=== PATIENT | male | born 1960 | race Caucasian/White ===

== ENCOUNTER 2024-03-11 08:50 | Observation (INO) ==
--- NOTE | 2024-02-04 11:25 | PAT Medication Instructions ---
Medication Instructions Date of Service February 04, 2024 Home Medications Medication Instructions Recorded sildenafil 50 mg tablet (Viagra) 50 mg PO DAILY PRN sexual activity 03/13/22 #10 tabs naloxone 4 mg/actuation nasal 4 mg intranasal Q2M PRN opioid 02/24/23 spray (Narcan) overdose #2 ea gabapentin 300 mg capsule 300 mg PO BID #180 caps 04/13/23 losartan 50 mg tablet 50 mg PO QAM #90 tabs 05/13/23 methocarbamol 500 mg tablet 500 mg PO BID #60 tabs 07/28/23 acetaminophen 500 mg capsule 500 mg PO Q6H PRN sildenafil 50 mg tablet (Viagra) 50 mg PO DAILY PRN acyclovir 400 mg tablet 400 mg PO BID allopurinol 300 mg tablet 300 mg PO QAM methylphenidate HCl 10 mg tablet 10 mg PO QID PRN naloxone 4 mg/actuation nasal spray (Narcan) 4 mg intranasal Q2M PRN gabapentin 300 mg capsule 300 mg PO BID losartan 50 mg tablet 50 mg PO QAM clonazepam 0.5 mg tablet (Klonopin) 0.5 mg PO HS PRN ondansetron HCl 8 mg tablet 8 mg PO Q8H PRN prochlorperazine maleate 10 mg tablet 10 mg PO Q6H PRN methocarbamol 500 mg tablet 500 mg PO BID cyanocobalamin (vitamin B-12) 1 tab PO QAM omeprazole magnesium 20 mg tablet,delayed release (Prilosec OTC) 20 mg PO QAM sertraline 100 mg tablet (Zoloft) 200 mg PO QAM Continue as directed naloxone 4 mg/actuation nasal spray (Narcan) 4 mg intranasal Q2M PRN(if needed) DO NOT take the morning of surgery sildenafil 50 mg tablet (Viagra) 50 mg PO DAILY PRN methylphenidate HCl 10 mg tablet 10 mg PO QID PRN losartan 50 mg tablet 50 mg PO QAM cyanocobalamin (vitamin B-12) 1 tab PO QAM Take morning of surgery With a small sip of water, OTHERWISE NOTHING TO EAT OR DRINK AFTER MIDNIGHT: acetaminophen 500 mg capsule 500 mg PO Q6H PRN(if needed) acyclovir 400 mg tablet 400 mg PO BID allopurinol 300 mg tablet 300 mg PO QAM gabapentin 300 mg capsule 300 mg PO BID ondansetron HCl 8 mg tablet 8 mg PO Q8H PRN(if needed) prochlorperazine maleate 10 mg tablet 10 mg PO Q6H PRN(if needed) methocarbamol 500 mg tablet 500 mg PO BID omeprazole magnesium 20 mg tablet,delayed release (Prilosec OTC) 20 mg PO QAM sertraline 100 mg tablet (Zoloft) 200 mg PO QAM Take evening before surgery acetaminophen 500 mg capsule 500 mg PO Q6H PRN(if needed) acyclovir 400 mg tablet 400 mg PO BID methylphenidate HCl 10 mg tablet 10 mg PO QID PRN(if needed) gabapentin 300 mg capsule 300 mg PO BID clonazepam 0.5 mg tablet (Klonopin) 0.5 mg PO HS PRN(if needed) ondansetron HCl 8 mg tablet 8 mg PO Q8H PRN(if needed) prochlorperazine maleate 10 mg tablet 10 mg PO Q6H PRN(if needed) methocarbamol 500 mg tablet 500 mg PO BID Other Notes If you have any questions please call us at [phone] or [phone] or [phone] or [phone]
--- NOTE | 2024-02-17 12:07 | Anesthesiology Consultation ---
Date of Service February 17, 2024 Assessment & Plan (1) Encounter for pre-operative examination: - Infectious disease screening: Per assessment on 02/17/24: No known recent infectious disease contacts or current infectious disease symptoms. - Outpatient joint assessment: Pt currently scheduled for inpatient pathway. If surgeon requests review for outpatient joint pathway, patient is an acceptable candidate for outpatient joint program from anesthesia standpoint pending surgeon's office assessment that patient is motivated, has good support and completes Same Day Joint Program preop requirements. - Cardiology note/[facility] inpatient evaluation (06/06/23): "Pt seen in cardiology consultation due to new possible murmur and fevers with underlying neutropenia and B cell lymphoma getting chemo. I personally reviewed the echo images interpreted by my partner the other day; the valve leaflets are well seen.. no evidence of suspected endocarditis; there is some mild sclerosis of the AV and MV which in could be the murmur being osculated and in the setting of possible fevers this murmur could be more audible.. I do not think a PEMA is indicated.. Pt is stable from a cardiac perspective" Chart Review Chart Review: Acceptable Risk for Surgery and Patient seen in Pre Admission Testing Teaching & Discussion Pre-Anesthesia Teaching/Discussion Notes: Instructed NPO after midnight before surgery,except medications with 15 cc of water. Medication instructions provided according to the PAT guidelines. History Surgery Operation Date: 03/11/24 10:00 Proposed Procedures p Left Total Knee Arthroplasty - Ricki Pacheco DO Height/Weight Height: 5 ft 10 in Weight: 115.9 kg Allergies Allergy/AdvReac Type Severity Reaction Status Date / Time No Known Drug Allergies Allergy Verified 02/04/24 07:31 Medications Home Medications Medication Instructions Recorded Confirmed Last Taken acetaminophen 500 mg capsule 500 mg PO Q6H PRN Pain 01/23/21 02/04/24 09/19/22 sildenafil 50 mg tablet (Viagra) 50 mg PO DAILY PRN sexual activity 03/13/22 02/04/24 Unknown #10 tabs acyclovir 400 mg tablet 400 mg PO BID 02/24/23 02/04/24 Unknown allopurinol 300 mg tablet 300 mg PO QAM 02/24/23 02/04/24 Unknown naloxone 4 mg/actuation nasal 4 mg intranasal Q2M PRN opioid 02/24/23 02/04/24 Unknown spray (Narcan) overdose #2 ea gabapentin 300 mg capsule 300 mg PO BID #180 caps 04/13/23 02/04/24 Unknown losartan 50 mg tablet 50 mg PO QAM #90 tabs 05/13/23 02/04/24 Unknown clonazepam 0.5 mg tablet (Klonopin) 0.5 mg PO HS PRN sleep/anxiety 06/08/23 02/04/24 Unknown ondansetron HCl 8 mg tablet 8 mg PO Q8H PRN N/V 06/08/23 02/04/24 Unknown prochlorperazine maleate 10 mg 10 mg PO Q6H PRN N/V 06/08/23 02/04/24 Unknown tablet methocarbamol 500 mg tablet 500 mg PO BID #60 tabs 07/28/23 02/04/24 Unknown cyanocobalamin (vitamin B-12) 1 tab PO QAM 02/04/24 02/04/24 Unknown omeprazole magnesium 20 mg 20 mg PO QAM 02/04/24 02/04/24 Unknown tablet,delayed release (Prilosec OTC) sertraline 100 mg tablet (Zoloft) 200 mg PO QAM 02/04/24 02/04/24 Unknown Past Medical History Medical History ADHD Anxiety and depression Aortic stenosis Echo 05/2023: "Mild" aortic stenosis (AV MG full 8.3mmhg, AV MG 11.3, ROSA 1.7cm2) COPD with emphysema Per records, patient unaware GERD (gastroesophageal reflux disease) History of anemia 05/2023, during chemo History of COVID-19 06/2022 (home test): rhinorrhea, cough > resolved 06/2023- Paxlovid tx > symptoms resolved History of kidney stones Hx of colonic polyps Hyperlipidemia Hypertension Left renal mass Per records Lumbar pain Lymphoma Dx 11/2022, 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 Multiple pulmonary nodules Under surveillance PRATIBHA (obstructive sleep apnea) CPAP (compliant) Osteoarthritis of knees, bilateral Port-A-Cath in place Exercise / Class Metabolic Activity II 4-5 Yardwork/Stairs/Walk up hill Past Family History Family History Father Mesothelioma Other No family history of adverse response to anesthesia Past Surgical History Surgical History H/O insertion of central venous access port 11/2022 History of colonoscopy History of cystoscopy History of mandibular surgery benign cyst removed from jaw History of tonsillectomy and adenoidectomy [place] teeth extracted Past Anesthesia History No Hx of Anesthesia Complications and No Family Hx of Anesthesia Complications History of PONV No Hx of PONV and No Hx of Motion Sickness Social History Smoking Status: Former smoker Do You Dip or Chew Tobacco: No Smoking End Date: Quit 10+ years ago Hx Alcohol Use: No substance use type: marijuana (Occasional use ) Review of Systems Patient denies chest pain, shortness of breath, dyspnea on exertion, fever, chills, cough, wheezing, palpitations. Physical Exam Vital Signs BP 130/81 P 81 TEMP 98.3 SP02 96%RA RESP 18 Physical Full cervical extension range of motion. Full TMJ range of motion. TMD >3.5 finger breaths Mallampati Score III Dentition: lower partial Lungs: clear throughout to auscultation Cardiac: regular rate and rhythm, II/ systolic murmur Spine: normal Carotid arteries: negative bruit Extremities: no LE edema Lab Results Anesthesia Preop Results Results Anesthesia Widget: PT 10.6 Seconds (9.0-12.0) 02/17/24 PTT 30 Seconds (21-31) 02/17/24 INR 1.0 (0.9-1.1) 02/17/24 Blood Type O Positive 02/17/24 Antibody Screen NEGATIVE 02/17/24 Testing Laboratory Results 02/04/24 WBC 5.61 H/H 13.1/38.9 PLATELETS 223 SODIUM 141 POTASSIUM 4.0 CHLORIDE 105 CO2 25 BUN 15 CREATININE 0.8 GLUCOSE 136 Electrocardiogram Date: 06/03/23 ST at 101bpm. NS STA. No significant change compared to 06/02/23 per supply chain associate comparison. Chest X-Ray Date: 06/03/23 Findings: + NAD Echocardiogram Date: 06/04/23 LVEF 60-64%. LV wall motion normal. Mild LAE/NIELS. LAE suggests diastolic LV dysfunction. Mild MR/TR. Mild aortic stenosis (AV MG full 8.3mmhg, AV MG 11.3, ROSA 1.7cm2).
[~2024-03-11 08:50] MED LIST: ROPIVACAINE 0.5% 5 MG/ML 30 ML VIAL ONE
[2024-03-11] MEDS: LR 500ML BOLUS, THEN 15ML/HR IV SCH (09:26)
[2024-03-11] MEDS: FAMOTIDINE 20 MG TAB PO SCH (09:27)
[2024-03-11] MEDS: dexAMETHasone**PF** 10 MG/ML VIAL IV SCH (09:27)
[2024-03-11] MEDS: ACETAMINOPHEN 500 MG TAB PO SCH ×2 (09:27→15:52)
[2024-03-11] MEDS: LR 60ML/HR IV SCH (09:28)
[2024-03-11] MEDS: GABAPENTIN 600 MG DOSE PO SCH (09:28)
[2024-03-11] MEDS ORDERED: MIDAZOLAM HCL 1 MG/ML 2ML VIAL ONE (10:18)
[2024-03-11] MEDS ORDERED: fentaNYL citrate PF 100 MCG/2 ML VIAL ONE (10:18)
--- NOTE | 2024-03-11 10:18 | History & Physical Bridge Note ---
Date of Service March 11, 2024 History & Physical Bridge Note I have examined the patient, reviewed the History & Physical and in the interval since the performance of the History & Physical I have noted the following changes of clinical significance: no changes noted
[2024-03-11] MEDS ORDERED: HYDROmorphone INJ 1 MG/ML SYRINGE IV PRN (10:34)
[2024-03-11] MEDS ORDERED: ePHEDrine sulfate 50 MG/ML AMP IV PRN (10:34)
[2024-03-11] MEDS ORDERED: ATROPINE SULFATE 0.1 MG/ML 10ML SYR IV PRN (10:34)
[2024-03-11] MEDS ORDERED: ONDANSETRON INJ 2 MG/ML 2 ML VIAL IV PRN ×2 (10:34→15:06)
[2024-03-11] MEDS ORDERED: LIDOCAINE 2% 2 ML VIAL/AMP(20MG/ML) INFIL ONE (10:41)
[2024-03-11] MEDS ORDERED: PROPOFOL IV EMULSION 10 MG/ML 20 ML VIAL IV ONE ×3 (10:51→12:53)
[2024-03-11] MEDS: TRANEXAMIC ACID 1,000 MG **IV Pre-op IV SCH (11:03)
[2024-03-11] MEDS: ceFAZolin 2000MG 2,000 MG/15 ML SYR IV SCH ×2 (11:20→18:47)
[2024-03-11] MEDS ORDERED: PHENYLEPHRINE 100MCG/ML 10ML SYR IV ONE (11:43)
[2024-03-11] MEDS: ORTHO JOINT ANESTHETIC ONE (12:09)
--- NOTE | 2024-03-11 12:43 | Operative Report ---
PG Post Operative Report Pre & Post Diagnosis Operation Date: 03/11/24 11:00 Pre-Op Diagnosis: Left knee degenerative joint disease. Post-Op Diagnosis: Left knee degenerative joint disease. I identified the patient and participated in the time-out.: Yes Procedure Operation Date: 03/11/24 11:00 Actual Procedures p Left Total Knee Arthroplasty(Left) - Ricki Pacheco DO Surgeon Ricki Pacheco DO Diesel Dinkey Engineer Ricki Pavon PA-C Estimated Blood Loss 30 Findings Consistent with Post-Op Diagnosis Specimens Left femoral tibial bone Description of Procedure Implants used: I used a Meseret Persona total knee arthroplasty system with a size 10 standard PS femur, F tibia, 34 oval patella, and a size 14 CPS polyethylene bearing. All components were cemented in place with Biomet cement. Maverick arrived [facility] for the above procedure. He was seen in the preoperative holding area and the operative extremity was identified and signed. He was given a preoperative antibiotic, TXA, a spinal anesthetic and an adductor nerve block. He was taken back to the operating room and laid on the table in supine position. He was given basic sedation. The operative knee was then prepped and draped in sterile fashion. A timeout was done, and the patient and the operative extremity was properly identified. A midline incision was made directly over the patella. Dissection was taken down to the extensor mechanism. A medial parapatellar arthrotomy was used. The medial retinaculum was released and the fat pad was mostly excised. The knee was flexed and the ACL, PCL, and meniscus were removed. A drill was sent down the center of the femoral canal followed by an intramedullary lucio. Off that lucio a distal femoral cutting block was placed. 9 mm was resected off the distal femur at 5 of valgus. A posterior referencing AP sizing guide was then placed on the distal femur. The femur measured to be a size 10. 2 drill holes were placed in 3 of external rotation. A 4-in-1 cutting block was then impacted into place. Anterior, posterior, and chamfer cuts were then made. The proximal tibia was then exposed. An external tibial alignment guide was placed. A tibial cut guide was then anchored in place and the proximal tibia was then resected. The posterior aspect of the knee was then opened up and any additional meniscus fragments and osteophytes were removed. The tibia measured to be a size F. The tibial plate was then placed in the appropriate rotation and the tibia was drilled and punched. Trial components were then placed. I used a size 14 CPS polyethylene insert. The knee was brought through a full range of motion and felt to be stable. The peg holes for the femoral component were then drilled. The patella was then everted and 9 mm was resected off the posterior aspect of the patella. The patella measured to be a size 34 oval. 3 peg holes were then drilled. A trial patella was placed. The knee was once again brought through a full range of motion and felt to be stable. Trial components were then removed. The surrounding soft tissues were injected with 100 cc of an orthopedic pain control cocktail. All components were then cemented into place with Biomet cement. The final polyethylene insert was then snapped into place. Once cement was dry the tourniquet was deflated. Hemostasis was obtained. A dilute betadyne lavage was then done for 3 minutes. The joint was then irrigated with normal saline solution. The medial parapatellar arthrotomy was then closed with #1 Vicryl suture. The skin was closed with 2-0 Vicryl, 3-0V lock suture, and oseas. A soft compressive dressing was placed. He was then transferred to a hospital bed and taken to the postanesthesia care unit in stable condition. He tolerated the procedure well. Ricki Pavon PA-C, was present for the entire procedure. He was critical for patient positioning, prepping, draping, retraction exposure, wound closure and application of sterile dressing. I attest to the content of the Intraoperative Record and any orders documented therein. Any exceptions are noted below.
[2024-03-11] MEDS: ROPIV 0.5% 246mg, Ketorolac 30mg, EPINEPHrine 0.5mg in NSS INFIL SCH (12:44)
[2024-03-11] MEDS: TRANEXAMIC ACID 1,000 MG **IV Intra-op IV SCH (12:44)
--- OUTSIDE RECORDS SUMMARY | 2024-03-11 13:20 | External Medical Summary | Summary of Care ---
Author Name Unknown Organization [facility] Address [address] [place] [address] Phone [phone] Care Team Providers Care Outside Sales Manager Name Role Phone David Barrios MD Primary Care Provider + Reason for Visit * Reason Comments eRx-Medication Refill Encounter Details Date Type Department Care Team (Late st Contact Info) Description 03/09/2024 Refill General Internal Medicine [facility] [address] [place] [address] David Barrios MD [address] [place] [address] Allergies Active Allergy Reactions Criticality Noted Date Comments Kiwi Extract 05/08/2017 Kiwi fruit-rash documented as of this encounter (statuses as of 03/11/2024) Medications Medication Sig Dispensed Refills Start Date End Date Status Losartan Potassium 50 MG Oral Tablet (Cozaar) Take 1 Tablet by mouth in the morning. Active Ondansetron HCl 8 MG Oral Tablet (Zofran)Indicatio ns: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 30 Tablet 2 02/13/2023 Active Allopurinol 300 MG Oral Tablet (Zyloprim)Indicat ions: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),Lymphoma of kidney (HCC) Take 1 Tablet by mouth in the morning. 30 Tablet 5 04/17/2023 Active clonazePAM 0.5 MG Oral Tablet (KlonoPIN)Indicat ions:DONI (generalized anxiety disorder) Take 1 Tablet by mouth every night at bedtime. 30 Tablet 07/29/2023 Active Sertraline HCl 100 MG Oral Tablet (Zoloft)Indicatio ns:DONI (generalized anxiety disorder) Take 1.5 Tablets by mouth in the morning. 135 Tablet 1 07/29/2023 Active Loratadine 10 MG Oral Capsule (Claritin) Take 1 Capsule by mouth in the morning. Active Omeprazole 20 MG Oral Capsule Delayed Release (PriLOSEC)Indicat ions: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),Lymphoma of kidney (HCC) Take 1 Capsule by mouth in the morning. 90 Capsule 1 11/10/2023 Active Sildenafil Citrate 50 MG Oral TabletIndications :Erectile dysfunction, unspecified erectile dysfunction type Take 1 Tablet by mouth daily as needed for Erectile Dysfunction. 10 Tablet 12/07/2023 Active Cyanocobalamin 1000 MCG Oral Tablet (Cyanocobalamin) Take 1 Tablet by mouth in the morning. 12/11/2023 Active Vitamin B-12 1000 MCG Oral Tablet (Cyanocobalamin) Take 1 Tablet by mouth in the morning. Active Gabapentin 300 MG Oral Capsule (Neurontin) Take 1 Capsule by mouth in the morning and 1 Capsule before bedtime. 60 Capsule 5 01/18/2024 Active Acyclovir 400 MG Oral Tablet (Zovirax)Indicati ons: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),Lymphoma of kidney (HCC) TAKE ONE TABLET BY MOUTH TWICE DAILY (IN THE MORNING AND AT BEDTIME) 60 Tablet 5 03/09/2024 Active Methocarbamol 500 MG Oral Tablet (Robamol) TAKE ONE TABLET BY MOUTH TWICE DAILY 60 Tablet 2 03/11/2024 Active Methocarbamol 500 MG Oral Tablet (Robamol) TAKE ONE TABLET BY MOUTH TWICE DAILY 60 Tablet 2 12/16/2023 Discontinued documented as of this encounter (statuses as of 03/11/2024) Active Problems Problem Noted Date Diagnosed Date Prediabetes 12/10/2023 History of lymphoma 07/23/2023 Mild aortic stenosis 06/05/2023 Mild mitral regurgitation 06/03/2023 Hypertension goal BP (blood pressure) < 140/90 1 08/03/2022 Metastasis to spinal cord 02/16/2023 Follicular lymphoma 02/16/2023 Lymphoma of kidney 02/13/2023 Encounter for antineoplastic chemotherapy 2022 Mixed hyperlipidemia 05/09/2017 ADHD (attention deficit hype ractivity disorder), inattentive type 05/09/2017 documented as of this encounter (statuses as of 03/11/2024) Resolved Problems Problem Noted Date Diagnosed Date Resolved Date Pancytopenia with fever 06/03/202311/24 Newly recognized murmur 06/03/202305/27 documented as of this encounter (statuses as of 03/11/2024) Immunizations Name Administration Dates Next Due COVID-19, mRNA, LNP-s, PF, B ooster, 100mcg/0.5mg (Moderna) 02/24/2022,05/25/2021,09/24/2020, 0 21 Seasonal Influenza, PF, 6 M & above, IM , (FluLaval or Fluzone) 04/30/2022,04/28/2020,05/08/2017 TDAP (age 10 and older)(Boostrix) 03/21/2021 documented as of this encounter Social History Tobacco Use Types Packs/Day Years Used Date Smoking Tobacco: Former Cigarettes Smokeless Tobacco: Never Alcohol Use Standard Drinks/Week Comments Not Currently 0 (1 standard drink = 0.6 oz pur e alcohol) PHQ-2 Answer Date Recorded PHQ Adult Total Score 0 06/03/2023 Utilities Answer Date Recorded Do you have trouble paying y our heating, water, or electric bill? (Adult - for ages 18 years and over) Not on file 01/12/2024 Is your family able to pay t he heat, water, or electric bill? (Household - for ages 0-17 years) Not on file 01/12/2024 Does your family have access to good internet? (Household - for ages 0-17 years) Not on file 01/12/2024 Social Connections Answer Date Recorded How often do you feel lonely or isolated from those around you? (Adult - for ages 18 years and over) Not on file 01/12/2024 Sex and Gender Information Value Date Recorded Sex Assigned at Male 01/28/2023 8:37 AM EDT Gender Identity Male 01/28/2023 8:37 AM EDT Sexual Orientation Straight 01/28/2023 8: 37 AM EDT Job Start Date Occupation Industry Not on file Not on file Not on file documented as of this encounter Functional Status Functional Status Response Date of Assess ment Are you deaf or do you have serious difficulty h earing? No 06/03/2023 Are you blind or do you have serious difficulty seeing, even when wearing glasses? No 06/03/2023 Do you have serious difficul ty walking or climbing stairs? (5 years old or older) No 06/03/2023 Do you have difficulty dress ing or bathing? (5 years old or older) No 06/03/2023 Because of a physical, menta l, or emotional condition, do you have difficulty doing errands alone such as visiting a doctor s office or shopping? (15 years old or older) No 06/03/20 Cognitive Status Response Date of Assessm ent Because of a physical, menta l, or emotional condition, do you have serious difficulty concentrating, remembering, or making decisions? (5 years old or older) No 06/03/2023 documented as of this encounter Miscellaneous Notes * Telephone Encounter - David Barrios MD - 03/11/2024 8:34 AM EDTSigned Prescriptions: Disp Refills Methocarbamol 500 MG Oral Tablet (Robamol) 60 Tab*2 Sig: TAKE ONE TABLET BY MOUTH TWICE DAILY Authorizing Provider: DAVID BARRIOS * Telephone Encounter - Alejandra Machado [facility] - 03/11/2024 6:15 AM EDT Pending Prescriptions: Disp Refills Methocarbamol 500 MG Oral Tablet (Robamol) 60 Tab*2 Sig: TAKE ONE TABLET BY MOUTH TWICE DAILY * Telephone Encounter - Alejandra Machado RPh - 03/11/2024 6:15 AM EDT Refill pharmacists currently not authorized to approve refills for this class of medication per refill protocol. Please approve if appropriate. Thank you, Alejandra Machado, PharmD. Clinical Pharmacist Pharmacy Refill Call Center 03/11/2024, 6:15 AM documented in this encounter Plan of Treatment Upcoming Encounters Date Type Department Care Team (Late st Contact Info) Description 03/24/2024 9:00 AM EDT Nurse Only Hematology/Oncology Treatment, [address] [address] [facility], Chair6 Hem Onc [address] [place] [id number] 05/12/2024 7:45 AM EDT Appointment Radiology, [address] [place] [address] 05/17/2024 1:45 PM EDT Office Visit Hematology/Oncology Andrzej [place] [phone] Negro Manuel MD [address] [place] [address] 06/30/2024 10:20 AM EST Office Visit General Internal [place] [address] David Barrios MD [address] [facility] [place] [address] Scheduled Procedures Name Priority Associated Diagnoses Date/Ti me COLONOSCOPY FLEXIBLE PROXIMAL DIAGNOSTIC Recall History of colon polyps Health Maintenance Due Date Last Done Comments Pneumococcal Vaccine: Pediatrics (0 to 5 Years) and At-Risk Patients (6 to 64 Years) (1 of 2 - PCV) 1965 Zoster Vaccines (1 of 2) 1978 Cologuard 2004 Fecal Occult Blood Test 2004 Sigmoidoscopy 2004 Colonoscopy 02/10/2022 02/10/2019, 02/10/2019 Colorectal Cancer Screening 02/10/2022 COVID-19 Vaccine ( season) 2023 02/24/2022, 05/25/2021, 09/24/2020, Additional history exists Influenza Vaccine (FLU shot) (#1) 2024 04/30/2022, 04/24/2021, 04/28/2020, Additional history exists Depression Screening 06/03/2024 06/03/2023 HbA1c 12/08/2024 12/09/2023 GFR 02/03/2025 02/04/2024, 11/25, 12/09/2023, Additional history exists Albumin/Creatinine Ratio 12/08/2026 12/09/2023 Lipid Panel 12/08/2028 12/09/2023, 06/26, 07/03/2014 DTaP,Tdap,and Td Vaccines (2 - Td or Tdap) 03/21/2031 03/21/2021 HPV (Gardasil) Vaccine Aged Out No lo nger eligible based on patient's age to complete this topic Hepatitis B Vaccine Aged Out No longe r eligible based on patient's age to complete this topic MENINGOCOCCAL (MENACTRA/MENVEO) Aged Out No longer eligible based on patient's age to complete this topic documented as of this encounter Medical Devices Implanted Type Area Crane Rigger Device Identifier Shelf Expiration Date Model / Serial / Lot Port Implant W/8f Poly Cath - [id number] Implanted:Qty : 1 on 02/25/2023 by Mick Rivera, at [facility] Right: Chest CR BARD : PERIPHERAL VASCULAR [id number] 11/24/2023 [id number] / / [id number] documented as of this encounter Advance Directives * Full Code (Latest Code Status on File) Date Activated Date Inactivated Comments 06/03/2023 7:46 PM 06/05/2023 4:10 PM This order reflects the patients wishes and were consensually agreed upon. Question Answer Comments Discussion of Advance Directives occurred with: Patient Care Teams Outside Sales Manager Relationship Specialty Start Date End Date David Barrios MD [address] [facility] [place] [address] PCP - General Internal Medicine 06/19/23 documented as of this encounter
--- OUTSIDE RECORDS SUMMARY | 2024-03-11 13:20 | External Medical Summary | Summary of Care ---
Author Name Unknown Organization [facility] Address [address] [place] [facility] [address] Phone [phone] Care Team Providers Care Steel Erector Name Role Phone David Barrios MD Primary Care Provider + Reason for Visit * Reason Comments eRx-Medication Refill Encounter Details Date Type Department Care Team (Late st Contact Info) Description 03/09/2024 Refill Hematology/Oncology [facility] [address] [facility] [place] [phone] Ashlee Aldana [facility] [address] 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); Lymphoma of kidney (HCC) Allergies Active Allergy Reactions Criticality Noted Date Comments Kiwi Extract 05/08/2017 Kiwi fruit-rash documented as of this encounter (statuses as of 03/09/2024) Medications Medication Sig Dispensed Refills Start Date [...] by mouth in the morning. 12/11/2023 Active Methocarbamol 500 MG Oral Tablet (Robamol) TAKE ONE TABLET BY MOUTH TWICE DAILY 60 Tablet 2 12/16/2023 Active Vitamin B-12 1000 MCG Oral Tablet [...] AT BEDTIME) 60 Tablet 5 03/09/2024 Active Acyclovir 400 MG Oral Tablet (Zovirax)Indicati ons: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),Lymphoma of kidney (HCC) TAKE ONE TABLET BY MOUTH TWICE DAILY (IN THE MORNING AND AT BEDTIME) 60 Tablet 5 07/28/2023 4 Discontinued documented as of this encounter (statuses as of 03/09/2024) Active Problems Problem Noted Date Diagnosed Date [...] as of this encounter (statuses as of 03/09/2024) Resolved Problems Problem Noted Date Diagnosed Date Resolved Date Pancytopenia with fever 06/03/202311/24 Newly recognized murmur 06/03/202305/27 documented as of this encounter (statuses as of 03/09/2024) Immunizations Name Administration Dates Next Due COVID-19, [...] encounter Miscellaneous Notes * Telephone Encounter - Negro Manuel MD - 03/09/2024 12:12 PM EDT E-prescribed acyclovir He has persistent lymphocytopenia and would like to continue acyclovir at this time. * Telephone Encounter - Martha Ochoa LPN - 03/09/2024 11:57 AM EDTPending Prescriptions: Disp Refills Acyclovir 400 MG Oral Tablet [Pharmacy Med*60 Tab*5 Sig: TAKE ONE TABLET BY MOUTH TWICE DAILY (IN THE MORNING AND AT BEDTIME) * Telephone Encounter - Martha Ochoa LPN - 03/09/2024 11:53 AM EDT Refill request for Acyclovir 400 mg tabs pended below: Last Refill: 07/28/2023 Last seen: 02/10/2024 Per Refill request 07/25/2024: Patient completed R-[facility] 06/17/23, prophylactic acyclovir. Next Appt.: 05/17/2024 documented in this encounter Plan of Treatment Upcoming Encounters Date Type Department Care Team (Late st Contact Info) Description 03/24/2024 9:00 AM EDT Nurse Only Hematology/Oncology Treatment, [address] [place] [address] [facility], Chair6 Hem Onc [address] [place] [address] [place] [address] 05/12/2024 7:45 AM EDT Appointment Radiology, [address] [place] [address] 05/17/2024 1:45 PM EDT Office Visit Hematology/Oncology [facility] [place] [address] [place] [phone] Negro Manuel MD [address] [place] [address] 06/30/2024 10:20 AM EST Office Visit General Internal Medicine [facility]j [facility]rows [place] [address] [place] [address] David Barrios MD [address] [place] [address] Scheduled Procedures Name Priority Associated Diagnoses Date/Ti [...] this encounter Medical Devices Implanted Type Area Mortgage Protection Sales Device Identifier Shelf Expiration Date Model / Serial / Lot Port Implant W/8f Poly Cath - [id number] Implanted:Qty : 1 on 02/25/2023 by Mick Rivera, at OR [facility] Right: Chest CR BARD : PERIPHERAL VASCULAR [id number] 11/24/2023 [id number] / / [id number] documented as of this encounter Visit Diagnoses Diagnosis 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 Question Answer Comments Discussion of Advance Directives occurred with: Patient Care Teams Steel Erector Relationship Specialty Start Date End Date David Barrios MD [address] [place] [address] PCP - General Internal Medicine 06/19/23 documented as of this encounter
--- OUTSIDE RECORDS SUMMARY | 2024-03-11 13:20 | External Medical Summary | Summary of Care ---
Author Name Unknown Organization [facility] Address [address] [facility] [address] Phone [phone] Care Team Providers Care Supervisor Pile Driving Name Role Phone David Barrios MD Primary Care Provider + Reason for Visit * Reason Comments Procedure Port flush with labs . Encounter Details Date Type Department Care Team (Late st Contact Info) Description 02/10/2024 8:15 AM EDT Nurse Only Hematology/Oncology Treatment, [address] [place] [phone] [place], Chair 1 Hem Onc [facility] [address], [place] [phone] Procedure (Port flush with labs. ) Allergies Active Allergy Reactions Criticality Noted Date Comments Kiwi Extract 05/08/2017 Kiwi fruit-rash documented as of this encounter (statuses as of 03/02/2024) Medications Medication Sig Dispensed Refills Start Date End Date Status Losartan Potassium 50 MG Oral Tablet (Cozaar) Take 1 Tablet by mouth in the morning. Active Ondansetron HCl 8 MG Oral Tablet (Zofran)Indications: 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 30 Tablet 2 02/13/2023 Active Prochlorperazine Maleate 10 MG Oral Tablet (Compazine)Indicatio ns: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),Lymphoma of kidney (HCC) Take 1 Tablet by mouth every 6 hours as needed for Nausea. 30 Tablet 2 02/13/2023 Active Allopurinol 300 MG Oral Tablet (Zyloprim)Indication s: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),Lymphoma of kidney (HCC) Take 1 Tablet by mouth in the morning. 30 Tablet 5 04/17/2023 Active Acyclovir 400 MG Oral Tablet (Zovirax)Indications :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),Lymphoma of kidney (HCC) TAKE ONE TABLET BY MOUTH TWICE DAILY (IN THE MORNING AND AT BEDTIME) 60 Tablet 5 07/28/2023 Active clonazePAM 0.5 MG Oral Tablet (KlonoPIN)Indication s:DONI (generalized anxiety disorder) Take 1 Tablet by mouth every night at bedtime. 30 Tablet 07/29/2023 Active Sertraline HCl 100 MG Oral Tablet (Zoloft)Indications: DONI (generalized anxiety disorder) Take 1.5 Tablets by mouth in the morning. 135 Tablet 1 07/29/2023 Active Loratadine 10 MG Oral Capsule (Claritin) Take 1 Capsule by mouth in the morning. Active Omeprazole 20 MG Oral Capsule Delayed Release (PriLOSEC)Indication s: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),Lymphoma of kidney (HCC) Take 1 Capsule by mouth in the morning. 90 Capsule 1 11/10/2023 Active Sildenafil Citrate 50 MG Oral TabletIndications:Er ectile dysfunction, unspecified erectile dysfunction type Take 1 [...] before bedtime. 60 Capsule 5 01/18/2024 Active documented as of this encounter (statuses as of 03/02/2024) Active Problems Problem Noted Date Diagnosed Date [...] as of this encounter (statuses as of 03/02/2024) Resolved Problems Problem Noted Date Diagnosed Date Resolved Date Pancytopenia with fever 06/03/202311/24 Newly recognized murmur 06/03/202305/27 documented as of this encounter (statuses as of 03/02/2024) Immunizations Name Administration Dates Next Due COVID-19, [...] No 06/03/2023 documented as of this encounter Nursing Notes * Dominique Alcala RN - 02/10/2024 8:24 AM EDT Chair 7. Patient was seen by today. (see office notes) VAD (Venous Access Device) accessed with #19G 3/4" without difficulty.Labs drawn. VAD flushed with 10 ml NSS and Heparin 5 ml (100 units/ml). Shahid needle removed intact. Patient tolerated procedure well. Discharged in stable condition. documented in this encounter Plan of Treatment Upcoming Encounters Date Type Department Care Team (Late st Contact Info) Description 03/24/2024 9:00 AM EDT Nurse Only Hematology/Oncology Treatment, [facility] [address] [place] [address] [address] [facility], Chair6 Hem Onc [address] [place] [phone] 05/12/2024 7:45 AM EDT Appointment Radiology, [facility] [address] [place] [address] 05/17/2024 1:45 PM EDT [facility] [place] [address] [facility] [place] [phone] Negro Manuel MD 200 [facility] [place] [address] 06/30/2024 10:20 AM EST Office Visit General Internal Medicine [facility] [place] [address] [facility] [place] [address] David Barrios MD [address] [facility] [place] [address] Scheduled Procedures Name Priority Associated Diagnoses Date/Ti [...] this encounter Medical Devices Implanted Type Area Test Desk Supervisor Device Identifier Shelf Expiration Date Model / Serial / Lot Port Implant W/8f Poly Cath - [id number] Implanted:Qty : 1 on 02/25/2023 by Mick Rivera DO at OR [facility] Right: Chest CR BARD : PERIPHERAL VASCULAR [id number] 11/24/2023 [id number] / / [id number] documented as of this encounter Procedures Procedure Name Priority Date/Time Associated Diagnosis Comments TESTOSTERONE: TOTAL, FREE AND BIOAVAILABLE Routine 02/10/2024 8:10 AM EDT History of lymphoma Normocytic anemia GGTP Routine 02/10/2024 8:10 AM EDT History of lymphoma Normocytic anemia documented in this encounter Results * GGTP (02/10/2024 8:10 AM EDT) GGTP 37 <=60 U/L 02/10/2024 2:3 3 PM EDT LAB[facility]ATORY [facility] Blood Blood sample taken from central line / Unknown Venipuncture / Unknown 02/10/2024 8:10 AM EDT 02/10/2024 8:23 AM EDT Negro Manuel MD LAB BLOOD ORDERABLES LABORATORY [facility] [address] [place] [address] * TESTOSTERONE: TOTAL, FREE AND BIOAVAILABLE (02/10/2024 8:10 AM EDT) Albumin 4.2 3.8 - 5.0 g/dL 02/10/2024 3:17 PM EDT LABORATORY [facility] Sex Hormone Binding Globulin 52 12 - 91 nmol/L 02/10/2024 3:17 PM EDT LABORATORY [facility] Testosterone, Total 403.0 193.0 - 740.0 ng/dL 02/10/2024 3:17 PM EDT LABORATORY [facility] Free Testosterone, Calculation 61.2 35.0 - 130.0 pg/mL 02/10/2024 3:17 PM EDT LABORATORY [facility] Bioavailable Testosterone Calculation 140.2 79.0 - 335.0 ng/dL 02/10/2024 3:17 PM EDT LABORATORY [facility] Blood Blood sample taken from central line / Unknown Venipuncture / Unknown 02/10/2024 8:10 AM EDT 02/10/2024 8:23 AM EDT Negro Manuel MD LAB BLOOD ORDERABLES LABORATORY [facility] [address] [place], [place] [phone] documented in this encounter Visit Diagnoses Diagnosis History of lymphoma- Primary Personal history of other lymphatic and hematopoietic neoplasm Normocytic anemia Anemia, unspecified Encounter for central line care Fitting and adjustment of vascular catheter documented in this encounter Administered Medications Inactive Administered Medications - up to 3 most recent administrations Medication Order MAR Action Action Date Dose Rate Site hEParin 100 UNIT/ML Lock Flush inj 500 Units 500 Units (5 mL), IV Lock, PRN Other, IV Flush, Starting on Thu02/10/24 at 0810, Until Thu02/10/24 at 1226, For 24 hours, Do not flush if lock, PICC, or central line not in place; IV infusing or unable to flush. Given 02/10/2024 8:12 AM EDT 500 Units sodium chloride 0.9 % flush central line 10 mL 10 mL, IV Push, PRN Other, IV Flush, Starting on Thu02/10/24 at 0810, Until Thu02/10/24 at 1226, For 24 hours, Do not flush if lock, PICC, or central line not in place; IV infusing or unable to flush. Given 02/10/2024 8:12 AM EDT 10 mL documented in this encounter Advance Directives * Full Code (Latest Code Status on File) Date Activated Date Inactivated Comments 06/03/2023 7:46 PM 06/05/2023 4:10 PM This order reflects the patients wishes and were consensually agreed upon. Question Answer Comments Discussion of Advance Directives occurred with: Patient Care Teams Supervisor Pile Driving Relationship Specialty Start Date End Date David Barrios MD [address] [place] [address] PCP - General Internal Medicine 06/19/23 documented as of this encounter
[2024-03-11] MEDS: KETOROLAC 30 MG/ML VIAL IV PRN (13:27)
--- NOTE | 2024-03-11 14:22 | XRay Report ---
XR knee LT 1 or 2V routine CLINICAL HISTORY: Surgical Post Op TECHNIQUE: 2 views of the left knee were obtained. Comparison: Comparison is made to knee radiograph 10/07/2023 FINDINGS: Patient is status post total knee arthroplasty with expected postsurgical changes including soft tiss ue swelling and subcutaneous emphysema. No periarticular lucency or hardware fracture is seen. IMPRESSION: Expected postoperative appearance status post placement of total knee arthroplasty. ACT 112: Negative or not required by law. Electronically signed by: Clifton Steven M.D. 03/11/2024 2:21 PM
--- NOTE | 2024-03-11 14:29 | Anesthesiology Progress Note ---
Date of Service March 11, 2024 Anesthesia Post Procedure Vital Signs Vital Signs: Temp Pulse Pulse Resp BP Pulse Ox O2 Del Method 03/11/24 14:15 88 15 134/92 95 Nasal Cannula 03/11/24 14:00 83 22 124/77 95 Nasal Cannula 03/11/24 13:45 75 13 107/65 95 Nasal Cannula 03/11/24 13:30 36.5 C 74 22 106/68 94 Nasal Cannula 03/11/24 13:20 83 23 124/82 92 Room Air 03/11/24 13:10 79 22 110/77 98 Oxymask 03/11/24 13:02 36.5 C 80 15 113/60 98 Oxymask 03/11/24 09:18 36.6 C 81 20 175/98 H 96 Room Air O2 Flow Rate 03/11/24 14:15 2 03/11/24 14:00 2 03/11/24 13:45 2 03/11/24 13:30 2 03/11/24 13:20 03/11/24 13:10 3 03/11/24 13:02 6 03/11/24 09:18 Pain Intensity Left Knee: Pain Intensity: 2 Transfer of Care Handoff Completed per policy Notes Mental Status: alert / awake / arousable Patient Amnestic to Procedure: Yes Nausea / Vomiting: adequately controlled Pain: adequately controlled Airway Patency, RR, SpO2: stable & adequate BP & HR: stable & adequate Hydration State: stable & adequate Neuraxial Anesthesia: was administered and sensory block is resolving Anesthetic Complications: no major complications apparent
[2024-03-11] MEDS ORDERED: MAGNESIUM HYDROXIDE SUSP 30 ML UDC PO PRN (15:06)
[2024-03-11] MEDS ORDERED: NALOXONE HCL 0.4 MG/1 ML VIAL/CARP IV PRN (15:06)
[2024-03-11] MEDS ORDERED: bisacodyL 10 MG SUPP PR PRN (15:06)
[2024-03-11] MEDS ORDERED: clonazePAM 0.5 MG TAB PO PRN (15:06)
[2024-03-11] MEDS ORDERED: HYDROmorphone INJ 0.5 MG/0.5 ML SYR IV PRN (15:06)
[2024-03-11] MEDS ORDERED: PROCHLORPERAZINE MALEATE 10 MG TAB PO PRN (15:06)
[2024-03-11] MEDS ORDERED: METOCLOPRAMIDE HCL INJ 5 MG/ML 2 ML VIAL IV PRN (15:06)
[2024-03-11] MEDS: SODIUM CHLORIDE 0.9% 1,000 ML IV SCH (15:37)
[2024-03-11] MEDS: KETOROLAC 30 MG/ML VIAL IV SCH (15:52)
[2024-03-11] MEDS: oxyCODONE HCL IR 5 MG TAB (IMMEDIATE RELEASE) PO PRN (16:45)
[2024-03-11] MEDS: SENNA 8.6 MG TAB PO SCH (21:50)
[2024-03-11] MEDS: GABAPENTIN 300 MG CAP PO SCH (21:51)
[2024-03-11] MEDS: METHOCARBAMOL 500 MG TABLET PO SCH (21:51)
[2024-03-11] MEDS: DOCUSATE SODIUM 100 MG CAP PO SCH (22:03)
[2024-03-11] MEDS: ACYCLOVIR 400 MG TAB PO SCH (22:04)
[2024-03-11] MEDS: ASPIRIN 81 MG ECTAB PO SCH (22:04)
[2024-03-12 07:19] VITALS: O2SAT 96
--- NOTE | 2024-03-12 07:54 | Orthopedic Progress Note ---
Date of Service March 12, 2024 Assessment & Plan (1) Status post left knee replacement: Overall he is doing fairly well. He is not having much pain in the left knee. He will be seen by physical therapy today for ambulation and range of motion exercises. He can be discharged to home later today. He is on aspirin for DVT prophylaxis. The nursing staff can change his dressing after physical therapy. He will follow with orthopedics in 2 weeks. Racquel Temple was seen and examined at bedside this morning. Overall he is doing very well. He is not having much pain in the left knee. He has been up and ambulating to the bathroom. He has no complaints.. Review of Systems All systems reviewed & are unremarkable except as noted in HPI & below. Physical Exam On physical examination left knee, the dressing is clean and dry. His leg is out full extension. He has active dorsiflexion plantarflexion of his left ankle.. Results & Data Results & Data Laboratory Results . Diagnostic Findings Postoperative x-rays of the left knee show the prosthesis to be in anatomic alignment without any evidence of fracture complication, or loosening.. PG Care Time/CCT Total # of Minutes Spent Total Time Spent with Patient: Total time spent is greater than 50% in coordination of care (as documented) at patient's floor/unit and/or counseling patient: Coding Level of Care Code 70408 Post Operative Follow-Up Diagnoses Status post left knee replacement Z96.652
--- NOTE | 2024-03-12 07:55 | Discharge Summary ---
Date of Service March 12, 2024 Principal Diagnosis Same as "Discharge Diagnosis" noted below under Discharge Instructions. Discharge Exam On physical examination left knee, the dressing is clean and dry. His leg is out full extension. He has active dorsiflexion plantarflexion of his left ankle.. Discharge Data Procedures Performed Operation Date: 03/11/24 11:00 Actual Procedures p Left Total Knee Arthroplasty(Left) - Ricki Pacheco DO Ordered Studies 03/11/24 05:00 US - OR guided needle placemen Routine Hospital Course (1) Status post left knee replacement: On March 11, 2024 Maverick arrived at [facility] and underwent a left knee replacement without complication. He had a spinal anesthetic. Postoperatively he was started on aspirin for DVT prophylaxis and transferred to the general orthopedic floors. His hospital course was uneventful. On postop day #1, his vital signs were stable and his pain was well-controlled. He was able to participate well with physical therapy doing ambulation and range of motion exercises. He was then discharged to home. He will follow-up with orthopedics in 2 weeks. PG Care Time/CCT Total # of Minutes Spent Total Time Spent with Patient: Total time spent is greater than 50% in coordination of care (as documented) at patient's floor/unit and/or counseling patient: Discharge Plan Discharge Items Reason For Visit: Left Knee Degenerative Joint Disease Discharge Diagnosis: Left knee replacement Activity: Per Instructions section Non-emergency contact: Surgeon Call non-emergency contact if: your wound has increased redness and your wound has increased drainage Follow-up/Referrals: PCP,NO [Primary Care Provider] - Diet: Regular Addtl Attending Provider Instructions: Activity and Therapy Recommendations: * If you are using [facility] then therapy will be provided at your home until they feel you have accomplished all of your goals. * If you are using [facility] then Physical Therapy will be provided until they feel you are ready to start Outpatient Physical Therapy. * If you are not using home therapy then Outpatient Physical Therapy should start about 3-5 days from your day of surgery. Therapy will last about 6-10 weeks * It is important not to put a pillow under your knee when you are relaxing or sleeping. It is just as important to make sure you are getting your knee perfectly straight as it is to regain your knee bend. * You were shown a series of exercises in the hospital. Do these exercises three times each day including the exercises you were shown in physical therapy. * Get up and walk several times each day. For the first four weeks, try not to stand or walk for more than one hour at a time. If you do stand or walk for more than one hour, you will not hurt anything, but your leg will likely swell. * As you feel comfortable, you may change from the walker or crutches to a cane and then to independent walking. Medications: * Narcotic You will likely be sent home from the hospital with a prescription for the narcotic pain medication that worked best throughout your stay. * Cefadroxil -take the antibiotic twice a day for 10 days to help prevent infection. * Aspirin Most patients will be required to take Aspirin 81mg twice a day for 6 weeks after surgery. This is obtained [id number] and a prescription is not necessary. * Other medications may be prescribed for specific circumstances. If you have any questions, please call the office at . * Resume previous home medications unless otherwise instructed TEDs/Elastic Stockings: The white elastic stockings help limit swelling and prevent blood clots from forming in your legs.~ The more you wear them, the more they work. Wear them for six weeks. Dressing Care: The dressing can be changed after physical therapy on postop day #1. Daily dry dressing changes for a few days, especially if the incision is still draining some. If the incision is not draining then you may leave the oseas open to air. If there is a little bit of drainage or if the oseas are getting stuck on your clothing then cover the incision with a dry dressing. The oseas will be removed at your 2 week follow-up appointment. Showering: You may shower 5 days from the day of surgery as long as the incision is no longer draining. You may shower with the oseas exposed. Let soapy water run over the oseas and pat them dry. Do not scrub or soak the incision. Things To Watch For: * Drainage from the incision site that occurs more than one week after your surgery. * Increased redness at the incision site. * Fever above 102 degrees Fahrenheit. * Unusual chest pain or shortness of breath. * Call [facility] at with any of the above problems Follow-Up Visit: Follow-up with Dr. Pacheco's PA (Ricki Pavon) 2-3 weeks after your day of surgery. He will remove your oseas and answer any questions. If you have any additional questions or concerns, Dr Pacheco is usually in the office at the same time and will be available An appointment was probably scheduled when you signed-up for surgery in the office. If you have any questions call Office Instructions: More detailed instructions as well as Frequently Asked Questions were provided in a folder by our office when you signed-up for surgery. Please review these instructions when you get home. If you have any further questions or concerns, please feel free to call the office at [phone] Pending Studies at Discharge: No Stand-Alone Forms: [facility] Medications and DC Order Prescriptions: New oxycodone 5 mg Tablet 5 mg PO Q4H PRN (Reason: pain) Qty: 30 0RF cefadroxil 500 mg capsule 500 mg PO BID 10 Days Qty: 20 0RF aspirin 81 mg Tablet,Delayed Release (Dr/Ec) 81 mg PO BID 42 Days Qty: 0 0RF Continued gabapentin 300 mg capsule 300 mg PO BID Qty: 180 1RF losartan 50 mg tablet 50 mg PO QAM Qty: 90 3RF methocarbamol 500 mg tablet 500 mg PO BID Qty: 60 2RF sildenafil [Viagra] 50 mg tablet 50 mg PO DAILY PRN (Reason: sexual activity) Qty: 10 0RF Rx Instructions: administer 30 minutes to 4 hours before activity acetaminophen 500 mg capsule 500 mg PO Q6H PRN (Reason: Pain) clonazepam [Klonopin] 0.5 mg tablet 0.5 mg PO HS PRN (Reason: sleep/anxiety) Patient Comments: takes rarely ondansetron HCl 8 mg tablet 8 mg PO Q8H PRN (Reason: N/V) prochlorperazine maleate 10 mg tablet 10 mg PO Q6H PRN (Reason: N/V) allopurinol 300 mg tablet 300 mg PO QAM acyclovir 400 mg tablet 400 mg PO BID Vitamin B-12 Tablet,Chewable 1 tab PO QAM sertraline [Zoloft] 100 mg tablet 200 mg PO QAM omeprazole magnesium [Prilosec OTC] 20 mg tablet,delayed release (DR/EC) 20 mg PO QAM Admission Data Admit Date/Time: 03/11/24 13:02 Attending Provider: Ricki Pacheco Admit Provider: Ricki Pacheco Primary Care Provider: PCPMAURILIO
[2024-03-12] MEDS: SERTRALINE HCL 100 MG TABLET PO SCH (08:47)
[2024-03-12] MEDS: LOSARTAN POTASSIUM 50 MG TAB PO SCH (08:47)
[2024-03-12] MEDS: allopurinoL 300 MG TAB PO SCH (08:47)
[2024-03-12] MEDS: dexAMETHasone 4 MG TAB PO SCH (08:48)
[2024-03-12] MEDS: MULTIVITAMIN TAB PO SCH (08:50)
[2024-03-12 08:57] VITALS: BP 126/84; PULSE 85; RESP 17; TEMP 98.2
== END 2024-03-12 11:05 | disposition home or self-care (01) ==
LOC: ASU 08:50 → 3N 08:50

== ENCOUNTER 2024-05-23 10:27 | Observation (INO) ==
--- NOTE | 2024-05-13 11:47 | Anesthesiology Consultation ---
Date of Service May 13, 2024 Assessment & Plan (1) Encounter for pre-operative examination: Chart Review Chart Review: Acceptable Risk for Surgery and Patient NOT seen in Pre Admission Testing Pt currently scheduled as 23 hours observation. If surgeon decides to change patient to [facility], patient would be acceptable risk for TKA, pending patient is motivated, has good support and surgeon's office completes [facility] preop requirements. -Infectious Disease screening: Per PAT nursing assessment on 05/13/24. No known infectious disease contacts in past 10 days or current infectious disease s ymptoms. No recent travel outside the country. Left TKA 03/11/24= Done under [facility] at L3-4 History Surgery Operation Date: 05/23/24 07:15 Proposed Procedures p Right Total Knee Arthroplasty - Ricki Pacheco DO Height/Weight Height: 5 ft 9.5 in Weight: 112.037 kg Allergies Allergy/AdvReac Type Severity Reaction Status Date / Time No Known Drug Allergies Allergy Verified 05/13/24 11:08 Medications Home Medications Medication Instructions Recorded Confirmed Last Taken acetaminophen 500 mg capsule 500 mg PO Q6H PRN Pain 01/23/21 05/13/24 09/19/22 sildenafil 50 mg tablet (Viagra) 50 mg PO DAILY PRN sexual activity 03/13/22 05/13/24 Unknown #10 tabs acyclovir 400 mg tablet 400 mg PO BID 02/24/23 05/13/24 03/11/24 07:00 allopurinol 300 mg tablet 300 mg PO QAM 02/24/23 05/13/24 03/11/24 07:00 gabapentin 300 mg capsule 300 mg PO BID #180 caps 04/13/23 05/13/24 03/11/24 07:00 losartan 50 mg tablet 50 mg PO QAM #90 tabs 05/13/23 05/13/24 03/10/24 08:00 clonazepam 0.5 mg tablet (Klonopin) 0.5 mg PO HS PRN sleep/anxiety 06/08/23 05/13/24 Unknown ondansetron HCl 8 mg tablet 8 mg PO Q8H PRN N/V 06/08/23 05/13/24 Unknown prochlorperazine maleate 10 mg 10 mg PO Q6H PRN N/V 06/08/23 05/13/24 Unknown tablet methocarbamol 500 mg tablet 500 mg PO BID #60 tabs 07/28/23 05/13/24 03/11/24 07:00 cyanocobalamin (vitamin B-12) 1 tab PO QAM 02/04/24 05/13/24 Unknown omeprazole magnesium 20 mg 20 mg PO QAM 02/04/24 05/13/24 03/11/24 07:00 tablet,delayed release (Prilosec OTC) sertraline 100 mg tablet (Zoloft) 200 mg PO QAM 02/04/24 05/13/24 03/11/24 07:00 Past Medical History Medical History ADHD Anxiety and depression Aortic stenosis Echo 05/2023: "Mild" aortic stenosis (AV MG full 8.3mmhg, AV MG 11.3, ROSA 1.7cm2) COPD with emphysema Per records, patient unaware GERD (gastroesophageal reflux disease) History of anemia 05/2023, during chemo History of COVID-19 06/2022 (home test): rhinorrhea, cough > resolved 06/2023- Paxlovid tx > symptoms resolved History of kidney stones Hyperlipidemia Hypertension Left renal mass Per records Lumbar pain Lymphoma Dx 11/2022, 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 Multiple pulmonary nodules Under surveillance PRATIBHA (obstructive sleep apnea) CPAP (compliant) Osteoarthritis of knees, bilateral Port-A-Cath in place Past Family History Family History Father Mesothelioma Other No family history of adverse response to anesthesia Past Surgical History Surgical History H/O insertion of central venous access port 11/2022 History of colonoscopy History of cystoscopy History of mandibular surgery benign cyst removed from jaw History of tonsillectomy and adenoidectomy History of total left knee replacement Left TKA 03/11/24= Done under [facility] at L3-4 [place] teeth extracted Social History Smoking Status: Former smoker Do You Dip or Chew Tobacco: No Smoking End Date: over 10 years ago Hx Alcohol Use: Yes (social drinker, but not for last 2 years) Alcohol type: beer, wine and hard liquor alcohol intake frequency: a few times a week Hx Substance Use: No substance use type: does not use Lab Results Anesthesia Preop Results Results Anesthesia Widget: WBC 6.63 K/ul (4.8-10.8) 05/03/24 Hgb 12.7 g/dl (14.0-18.0) L 05/03/24 Hct 37.9 % (42.0-52.0) L 05/03/24 Plt 239 K/uL (130-400) 05/03/24 Na 138 mmol/L (136-145) 05/03/24 K 3.9 mmol/L (3.5-5.1) 05/03/24 Cl 104 mmol/L (98-107) 05/03/24 CO2 26 mmol/L (21-32) 05/03/24 BUN 15 mg/dl (6-23) 05/03/24 Creat 0.82 mg/dl (0.6-1.4) 05/03/24 Glucose Level 153 mg/dl (70-99(Fasting)) H 05/03/24 PT 10.6 Seconds (9.0-12.0) 05/03/24 PTT 31 Seconds (21-31) 05/03/24 INR 1.0 (0.9-1.1) 05/03/24 Blood Type O Positive 05/03/24 Antibody Screen NEGATIVE 05/03/24 Testing Laboratory Results Mild anemia- s/p Left TKA 03/11/24 Electrocardiogram Date: 06/03/23 ST at 101bpm. NS STA. No significant change compared to 06/02/23 per legal services professional comparison. Chest X-Ray Date: 06/03/23 Findings: + NAD Echocardiogram Date: 06/04/23 LVEF 60-64%. LV wall motion normal. Mild LAE/NIELS. LAE suggests diastolic LV dysfunction. Mild MR/TR. Mild aortic stenosis (AV MG full 8.3mmhg, AV MG 11.3, ROSA 1.7cm2).
[~2024-05-23 10:27] MED LIST changes: +BUPIVACAINE 0.25% PF 30 ML VIAL ONE; +BUPIVACAINE 0.5 % 5 MG/1 ML PF 10ML VIAL ONE; -ROPIVACAINE 0.5% 5 MG/ML 30 ML VIAL ONE
[2024-05-23] MEDS ORDERED: PHENYLEPHRINE 100MCG/ML 5ML SYR ONE (10:45)
[2024-05-23] MEDS ORDERED: ONDANSETRON INJ 2 MG/ML 2 ML VIAL ONE (10:45)
[2024-05-23] MEDS ORDERED: PROPOFOL IV EMULSION 10 MG/ML 20 ML VIAL IV ONE (10:45)
[2024-05-23] MEDS ORDERED: ePHEDrine sulfate 50 MG/5 ML SYR ONE (10:45)
[2024-05-23] MEDS ORDERED: MIDAZOLAM HCL 1 MG/ML 2ML VIAL ONE ×2 (10:46→12:34)
[2024-05-23] MEDS ORDERED: ePHEDrine sulfate 50 MG/ML AMP IV PRN (10:52)
[2024-05-23] MEDS ORDERED: ATROPINE SULFATE 0.1 MG/ML 10ML SYR IV PRN (10:52)
[2024-05-23] MEDS ORDERED: ONDANSETRON INJ 2 MG/ML 2 ML VIAL IV PRN ×2 (10:52→16:32)
[2024-05-23] MEDS ORDERED: fentaNYL citrate PF 100 MCG/2 ML VIAL IV PRN (10:52)
[2024-05-23] MEDS: LR 500ML BOLUS, THEN 15ML/HR IV SCH (10:54)
[2024-05-23] MEDS: LR 60ML/HR IV SCH (10:55)
--- NOTE | 2024-05-23 11:11 | History & Physical Bridge Note ---
Date of Service May 23, 2024 History & Physical Bridge Note I have examined the patient, reviewed the History & Physical and in the interval since the performance of the History & Physical I have noted the following changes of clinical significance: no changes noted
[2024-05-23] MEDS: ACETAMINOPHEN 500 MG TAB PO SCH ×2 (11:23→17:04)
[2024-05-23] MEDS: FAMOTIDINE 20 MG TAB PO SCH (11:24)
[2024-05-23] MEDS: dexAMETHasone**PF** 10 MG/ML VIAL IV SCH (11:24)
[2024-05-23] MEDS: TRANEXAMIC ACID 1,000 MG **IV Pre-op IV SCH (12:00)
[2024-05-23] MEDS: ceFAZolin 2000MG 2,000 MG/15 ML SYR IV SCH ×2 (12:12→20:55)
[2024-05-23] MEDS: ROPIV 0.5% 246mg, Ketorolac 30mg, EPINEPHrine 0.5mg in NSS INFIL SCH (12:47)
[2024-05-23] MEDS: ORTHO JOINT ANESTHETIC ONE (12:47)
[2024-05-23] MEDS: TRANEXAMIC ACID 1,000 MG **IV Intra-op IV SCH (13:15)
--- NOTE | 2024-05-23 13:20 | Operative Report ---
PG Post Operative Report Pre & Post Diagnosis Operation Date: 05/23/24 12:00 Pre-Op Diagnosis: Degenerative Joint Disease Knee Right Post-Op Diagnosis: Degenerative Joint Disease Knee Right I identified the patient and participated in the time-out.: Yes Procedure Operation Date: 05/23/24 12:00 Actual Procedures p Right Total Knee Arthroplasty(Right) - Ricki Pacheco DO Surgeon Ricki Pacheco DO Ham Facer Ricki Pavon PA-C Estimated Blood Loss 30 Findings Consistent with Post-Op Diagnosis Specimens Right femoral and tibial bone Description of Procedure Implants used: I used a [employer]ese[employer] Persona total knee arthroplasty system with a size 9 standard PS femur, F tibia, 34 oval patella, and a size 16 CPS polyethylene bearing. All components were cemented in place with Biomet cement. Maverick arrived [facility] for the above procedure. He was seen in the preoperative holding area and the operative extremity was identified and signed. He was given a preoperative antibiotic, TXA, a spinal anesthetic and an adductor nerve block. He was taken back to the operating room and laid on the table in supine position. He was given basic sedation. The operative knee was then prepped and draped in sterile fashion. A timeout was done, and the patient and the operative extremity was properly identified. A midline incision was made directly over the patella. Dissection was taken down to the extensor mechanism. A medial parapatellar arthrotomy was used. The medial retinaculum was released and the fat pad was mostly excised. The knee was flexed and the ACL, PCL, and meniscus were removed. A drill was sent down the center of the femoral canal followed by an intramedullary lucio. Off that lucio a distal femoral cutting block was placed. 9 mm was resected off the distal femur at 5 of valgus. A posterior referencing AP sizing guide was then placed on the distal femur. The femur measured to be a size 9. 2 drill holes were placed in 3 of external rotation. A 4-in-1 cutting block was then impacted into place. Anterior, posterior, and chamfer cuts were then made. The proximal tibia was then exposed. An external tibial alignment guide was placed. A tibial cut guide was then anchored in place and the proximal tibia was then resected. The posterior aspect of the knee was then o pened up and any additional meniscus fragments and osteophytes were removed. The tibia measured to be a size F. The tibial plate was then placed in the appropriate rotation and the tibia was drilled and punched. Trial components were then placed. I used a size 16 CPS polyethylene insert. The knee was brought through a full range of motion and felt to be stable. The peg holes for the femoral component were then drilled. The patella was then everted and 9 mm was resected off the posterior aspect of the patella. The patella measured to be a size 34 oval. 3 peg holes were then drilled. A trial patella was placed. The knee was once again brought through a full range of motion and felt to be stable. Trial components were then removed. The surrounding soft tissues were injected with 100 cc of an orthopedic pain control cocktail. All components were then cemented into place with Biomet cement. The final polyethylene insert was then snapped into place. Once cement was dry the tourniquet was deflated. Hemostasis was obtained. A dilute betadyne lavage was then done for 3 minutes. The joint was then irrigated with normal saline solution. The medial parapatellar arthrotomy was then closed with #1 Vicryl suture. The skin was closed with 2-0 Vicryl, 3-0V lock suture, and oseas. A soft compressive dressing was placed. He was then transferred to a hospital bed and taken to the postanesthesia care unit in stable condition. He tolerated the procedure well. Ricki Pavon PA-C, was present for the entire procedure. He was critical for patient positioning, prepping, draping, retraction exposure, wound closure and application of sterile dressing. I attest to the content of the Intraoperative Record and any orders documented therein. Any exceptions are noted below.
--- NOTE | 2024-05-23 13:45 | Anesthesiology Progress Note ---
Date of Service May 23, 2024 Anesthesia Post Procedure Vital Signs Vital Signs: Temp Pulse Resp BP Pulse Ox O2 Del Method 05/23/24 11:06 36.6 C 88 20 135/95 96 Room Air Pain Intensity Right Knee: Pain Intensity: 6 Transfer of Care Handoff Completed per policy Notes Mental Status: alert / awake / arousable and participated in evaluation Patient Amnestic to Procedure: Yes Nausea / Vomiting: adequately controlled Pain: adequately controlled Airway Patency, RR, SpO2: stable & adequate BP & HR: stable & adequate Hydration State: stable & adequate Neuraxial Anesthesia: was administered and sensory block is resolving Anesthetic Complications: no major complications apparent and Pt Satisfied with anesthetic care
--- OUTSIDE RECORDS SUMMARY | 2024-05-23 15:05 | External Medical Summary | Summary of Care ---
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) Procedures PET CT SKULL BASE TO MID-THIGH FDG Negro Manuel MD [address] [place] [address] Referral ID Status Reason Start Date Expiration Date V isits Requested Visits Authorized [id number] Pending Review 05/17/2024 999 999 Reason for Visit * Reason Comments Follow Up Encounter Details Date Type Department Care Team (Late st Contact Info) Description 05/17/2024 1:45 PM EDT Office Visit Hematology/Oncology [facility] [address] [place] [address] [phone] Negro Manuel MD [address] [facility] [place] [address] Lymphoma of kidney (HCC)*; 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 30 Tablet 5 04/17/2023 Active Additional Information Patient not taking.Reported on 05/17/2024 clonazePAM 0.5 MG Oral Tablet (KlonoPIN)Indicatio ns:DONI (generalized anxiety disorder) Take 1 Tablet by mouth every night at bedtime. 30 Tablet 07/29/2023 Active Sertraline HCl 100 MG Oral Tablet (Zoloft)Indications :DONI (generalized anxiety disorder) Take 1.5 Tablets by mouth in the morning. 135 Tablet 1 07/29/2023 Active Loratadine 10 MG Oral Capsule (Claritin) Take 1 Capsule by mouth in the morning. 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),Lymphoma of kidney (HCC) TAKE 1 CAPSULE BY MOUTH EVERY MORNING 90 Capsule 1 03/14/2024 Active Losartan Potassium 50 MG Oral Tablet (Cozaar) TAKE 1 TABLET BY MOUTH ONCE DAILY IN THE MORNING 90 Tablet 3 05/11/2024 Active documented as of this encounter (statuses as of 05/17/2024) Active Problems Problem Noted Date Diagnosed Date [...] as of this encounter (statuses as of 05/17/2024) Resolved Problems Problem Noted Date Diagnosed Date Resolved Date Pancytopenia with fever 06/03/202311/24 Newly recognized murmur 06/03/202305/27 documented as of this encounter (statuses as of 05/17/2024) Immunizations Name Administration Dates Next Due COVID-19, [...] on file documented as of this encounter Last Filed Vital Signs Vital Sign Reading Time Taken Comments Blood Pressure 150/79 05/17/2024 1:25 PM EDT Pulse 88 05/17/2024 1:25 PM EDT Temperature 36.2 C (97.2 F) 05/17/2024 1:25 PM ED T Respiratory Rate - - Oxygen Saturation 96% 05/17/2024 1:25 PM EDT Inhaled Oxygen Concentration - - Weight 114.5 kg (252 lb 6.4 oz) 05/17/2024 1:25 PM EDT Height - - Body Mass Index 38.66 12/07/2023 10:42 AM EDT documented in this encounter Functional Status Functional Status Response [...] (15 years old or older) No 06/03/20 23 Cognitive Status Response Date of Assessm ent Because of a physical, menta l, or emotional condition, do you have serious difficulty concentrating, remembering, or making decisions? (5 years old or older) No 06/03/2023 documented as of this encounter Progress Notes * Negro Manuel MD - 05/17/2024 1:45 PM EDT Hematology/Oncology Outpatient Clinic note [facility] [address] [facility] [place] [address] Name: Maverick Isabel Date: 04/15/2023 CHIEF COMPLAINT: Maverick Isabel is a 63 year old male here today for f/u visit today. HEMATOLOGY/ONCOLOGY DIAGNOSIS: Lymphoma involving multiple sites including the left kidney or perinephric region,, spleen, widespread bony involvement, enhancing epidural tumor most significantly in the T8 - T11 level DATE OF DIAGNOSIS: 12/26/22 CURRENT TREATMENT: Observation. COMPLETED TREATMENT: R-CHOP x 6 (03/05/2023--06/17/2023) -prophylactic Pegfilgrastim DIAGNOSTIC WORKUP: History of pulmonary nodule noted, he follows with medical transport specialist, had a periodic imaging study of the chest. CT chest done on 07/23/2022 at [facility]: -slightly hyperdense material along with the upper pole of the left kidney may invade the adjacent spleen, this could be subcapsular hemorrhage or possible mass lesion. -mild left hydronephrosis noted. -enlarging retrograde referred nodule as well as right axillary lymph node. -stable bilateral lung nodules He has a fall on ice in June 2022, CT scan of the abdomen pelvis done on 08/04/2022 showed perinephric hematoma adjustment of the left kidney upper pole, small left proximal ureter kidney stone with [id number] left hydronephrosis. He had a kidney sonogram on 11/24/2022 which showed no signal hydronephrosis but perinephric/subcapsular lesion nausea left upper pole of the kidney which are suspicious for neoplasm. MRI of the abdomen (12/09/2022: -Enhancing perirenal mass is seen with an enlarged medial component. Numerous enhancing soft tissuenodules are also seen. Findings are concerning for lymphoma with renal lymphoma. Of note, these findings have slowly enlarged from multiple prior exams MRI of the abdomen reviewed at [facility] as follows: 1. Second opinion evaluation MRI abdomen 12/09/2022. No priors at this institution for comparison. 2. Enhancing left perinephric mass, concerning for lymphoma given reported history. Recommend correlation with outside institution workup. 3. Ill-defined mesenteric root masslike enhancement, indeterminate. Findings could represent underlying mass versus desmoplastic reaction. 4. 10 mm pancreatic tail mass, with arterial enhancement which is atypical for lymphoma and may reflect hypervascular pancreatic primary or metastasis. Recommend comparison with priors. 5. Enlarged right cardiophrenic lymph node. Retroperitoneum, left, biopsy: (12/26/2022). - B-cell lymphoma with a follicular phenotype (see comment) Comment: The lymphocytes are CD10+/BCL-6+/BCL-2+ and show cleaved morphology with a diffuse growth pattern. They are relatively small to intermediate in size and are not diagnostic for large cell lymphoma; however, this is only a small biopsy of a larger lesion and may not be entirely human resources representative of the whole. While a diffuse follicular lymphoma is a little unusual in this location, I favor this is a follicular lymphoma grade 1/2. 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 Thus, we cannot classify this as a follicular lymphoma on this material. However there is nothing to suggest an aggressive lymphoma based on the histologic findings in this material. PET-CT scan (02/05/2023). Large left multifocal renal mass consistent with the biopsy proven lymphoma evidence of both thoracic and abdominal metastatic adenopathy, splenic involvement, and widespread osseous metastasis. Additional concern for possible spinal cord met at approximately T10. MRI of the thoracic spine (02/07/2023). 1. Enhancing epidural tumor most significant at the T8-T11 levels resulting in severe canal stenosis at the T9-T10 levels, likely on account of the patient's known lymphoma. There is no associated cord signal abnormality. Extraosseous tumor encroaches on several thoracic neural foramina, as described above. 2. Pathologic osseous enhancement at multiple thoracic levels, consistent with osseous involvement of known lymphoma. 3. Enhancing paravertebral tumor throughout the thoracic spine, consistent with lymphoma. MRI of the lumbar spine (02/09/2023). 1. Partially-imaged known thoracic epidural involvement of lymphoma. 2. Osseous lymphoma involvement, most notably at the L1 and S1 levels and in the partially-imaged iliac bones. 3. Multilevel degenerative changes - he was started on oral prednisone 100 mg per day on 02/09/2023 for 1 week. Bone marrow aspiration and biopsy (02/13/2023) - Foci of atypical para/geo trabecular dense lymphoid infiltrate most consistent with involvement by follicular lymphoma. ( 10%). Flow cytometry -> negative. OTHER IMPORTANT HISTORY: - back pain, disc problem, sciatica, he is on Neurontin for the last 2 years -hypertension He had COVID-19 infections in early July of 2022 and received Paxlovid, HISTORY OF PRESENT ILLNESS: He has come the clinic for the follow-up, accompanied by his in the office, now he completed 6cycles of R-CHOP chemotherapy on 06/15/2023. No new cardiac or pulmonary symptom no nausea no vomiting, no abdominal pain, no fever, some night sweats present, current weight around 252 lb. No increasing headache. No back pain, denies any increasing tingling and numbness of the extremities. Ambulates slowly because of the bilateral knee jointpain related underlying DJD. Past Medical History: Diagnosis Date Hypertension goal BP (blood pressure) < 140/90 06/03/2023 Motion sickness Past Surgical History: Procedure Laterality Date COLONOSCOPY, DIAGNOSTIC (RECTUM) 02/10/2019 adenomatous polyps, diverticulosis, repeat 3 yrs/COLONOSCOPY FLEXIBLE PROXIMAL DIAGNOSTIC performedby Linda White MD at ENDOSCOPY [facility] INSER TUNN ACC DEV;5 YRS/OLDER Right 02/25/2023 INSERT TUNNELED CENTRAL VENOUS ACCESS WITH SUBQ PORT performed by Mick Rivera DO at OR [facility] Social History Socioeconomic History Marital status: Spouse name: Not on file Number of children: 1 Years of education: Not on file Highest education level: Not on file Occupational History Occupation: non [employer] units Tobacco Use Smoking status: Former Types: Cigarettes Smokeless tobacco: Never Vaping Use Vaping status: Never Used Substance and Sexual Activity Alcohol use: Not Currently Drug use: Not Currently Sexual activity: Not on file Other Topics Concern Not on file Social History Narrative Not on file Social Determinants of Health Financial Resource Strain: Not on file Food Insecurity: Not on file Transportation Needs: Not on file Social Connections: Unknown (01/12/2024) Social Connections How often do you feel lonely or isolated from those around you? (Adult - for ages 18 years and over): Not on file Housing Stability: Low Risk (11/24/2023) [facility] Housing Stability Unstable Housing in the Last Year: Not on file Review of patient's allergies indicates: Allergen Reactions Kiwi Extract Kiwi fruit-rash Current Outpatient Medications Medication Sig Dispense Refill Ondansetron HCl 8 MG Oral Tablet (Zofran) Take 1 Tablet by mouth every 8 hours as needed for Nausea. 30 Tablet 2 Prochlorperazine Maleate 10 MG Oral Tablet (Compazine) Take 1 Tablet by mouth every 6 hours as needed for Nausea. 30 Tablet 2 Allopurinol 300 MG Oral Tablet (Zyloprim) Take 1 Tablet by mouth in the morning. 30 Tablet 5 clonazePAM 0.5 MG Oral Tablet (KlonoPIN) Take 1 Tablet by mouth every night at bedtime. 30 Tablet 0 Sertraline HCl 100 MG Oral Tablet (Zoloft) Take 1.5 Tablets by mouth in the morning. 135 Tablet 1 Loratadine 10 MG Oral Capsule (Claritin) Take 1 Capsule by mouth in the morning. Sildenafil Citrate 50 MG Oral Tablet Take 1 Tablet by mouth daily as needed for Erectile Dysfunction. 10 Tablet 0 Cyanocobalamin 1000 MCG Oral Tablet (Cyanocobalamin) Take 1 Tablet by mouth in the morning. Vitamin B-12 1000 MCG Oral Tablet (Cyanocobalamin) Take 1 Tablet by mouth in the morning. Gabapentin 300 MG Oral Capsule (Neurontin) Take 1 Capsule by mouth in the morning and 1 Capsule before bedtime. 60 Capsule 5 Acyclovir 400 MG Oral Tablet (Zovirax) TAKE ONE TABLET BY MOUTH TWICE DAILY (IN THE MORNING AND AT BEDTIME) 60 Tablet 5 Methocarbamol 500 MG Oral Tablet (Robamol) TAKE ONE TABLET BY MOUTH TWICE DAILY 60 Tablet 2 Omeprazole 20 MG Oral Capsule Delayed Release (PriLOSEC) TAKE 1 CAPSULE BY MOUTH EVERY MORNING 90 Capsule 1 Losartan Potassium 50 MG Oral Tablet (Cozaar) TAKE 1 TABLET BY MOUTH ONCE DAILY IN THE MORNING 90 Tablet 3 No current facility-administered medications for this visit. OBJECTIVE: BP 150/79 (BP Site: Left Arm, BP Position: Sitting, BP Cuff Size: Large) | Pulse 88 | Temp 36.2 C(97.2 F) (Tympanic) | Wt 114.5 kg (252 lb 6.4 oz) | SpO2 96% | BMI 38.66 kg/m | BSA 2.34 m PHYSICAL EXAM: General Appearance: No acute distress HEENT: Normal - No oral or pharyngeal masses, ulceration or thrush noted Lymph Nodes: Normal - No palpable lymph nodes in the neck, supraclavicular or axillary areas Lungs/Thorax: Normal - Clear to auscultation Heart: Normal - Regular rate and rhythm, normal S1, S2, no appreciable murmurs Extremities: +trace RLE edema Abdomen: Normal - Soft, nontender, bowel sounds present, no appreciable hepatosplenomegaly, no palpable masses Neurologic: Normal - Grossly intact LABS: Blood workup done on 08/20/2023: -WBC 5500, H&H of 13.8/40.6, Platelet count of 664925 -BUN/Creat: 15/0.9, Calcium 9.0, normal LFT other than slightly elevated alkaline phosphatase 147 -GGTP --> 148 which is on the higher side. -LDH -227. -IgG 640, IgA 194, IgM 18 ( 08/26/2023). Blood workup done on 10/05/2023: -WBC 6500, H&H of 14.4/41.3, Platelet count of 300154 -BUN/Creat: 18/1.1 -AST 76, ALT 119, alkaline phosphatase 207, bilirubin level 0.6 -LDH --> 284 - Uric acid --> 4.2 -phosphorus level --> 3.5 Blood workup done on 02/04/2024: - WBC 5600, H&H of 13/39, MCV 102.4, platelet count of 223,000. - BUN/Creat: 15/0.8, normal LFT other than alkaline phosphatase of 150 - LDH --> 209 - Uric acid --> 4.7 - Phosphorus level --> 3.5. Blood workup done on 05/16/2024: -BUN/Creat: 20/0.8, normal LFT other than alkaline phosphatase of 161, bilirubin level 0.4, calcium9.2 - WBC 7000, H&H of 13.2/40.4, platelet count of 231,000. CT scan of chest, abdomen pelvis on 04/27/2023: -few micro lung nodules. -previously enlarged the right cardiophrenic angle lymph node has gone down from 2.2 x 3.8 cm --> 1 x 2.1 cm -previously seen left paraspinous soft tissue density at the level of T7 and T10 have markedly decreased in size -previously noted subcapsular soft tissue infiltration of the left kidney has significantly decrease in the size. -previous fracture of left anterior 7th rib noted ( history of trauma about 2 years back ) -focal sclerosis of the left superior pubic ramus, no additional bone lesions noted PET-CT scan done on 08/19/2023 at [facility]: 1. Overall decreased left perinephric soft tissue compared to 03/28/2023, with mild residual stranding adjacent to the posterior aspect of the upper pole demonstrating mild FDG uptake and resolution ofpreviously seen soft tissue at the medial aspect of the left upper pole. 2. Fat stranding and soft tissue density at the small bowel mesenteric root and adjacent to the duodenal jejunal junction may be slightly decreased in size compared to MRI abdomen 03/28/2023 within thelimitations of comparison across modalities. These findings show no significant FDG uptake. 3. Unchanged right cardiophrenic lymph node without significant FDG uptake. 4. 1.6 cm superficial subcutaneous/cutaneous nodular density along the lower right back with moderate FDG uptake, indeterminate. Correlate with physical examination. 5. Mild soft tissue fullness in the pancreatic tail in the region of the previously described hypervascular lesion. This area is without significant FDG uptake. PET-CT scan done on 12/18/2023: Deashana 2. Decreased size and activity of the anterior mediastinal mass, now with background level uptake. Otherwise, resolution of the hypermetabolic paraspinous, left renal, splenic, and osseous lesions. PET-CT scan on 05/12/2024: Deauville score 1. Resolution of metabolically-active lymphoma. IMPRESSION/PLAN: Lymphoma involving multiple sites including the left kidney, spleen, widespread bony metastatic disease, enhancing epidural tumor most significantly in the T8 - T11 level Encounter for chemotherapy He completed 6 cycles of R-CHOP in late May 2023, he had a infectious complications following that, also had COVID infection in July of 2023. IgG level was around 640. Now he has done quite well in last 6 months, I reviewed with them regarding the last PET-CT scan done on 05/12/2024, overall no FDG avid disease noted anywhere else. Reviewed blood workup done recently, lymphocytopenia is persistent, he is on acyclovir prophylaxis,he would like to continue that. He gets a port flush every 6 weekly, no new port problem. I am planning for follow-up PET-CT scan about 6 months and then will see him back in the clinic. Will get CBCD, comprehensive metabolic panel, LDH, Uric acid in about 6 months unless he has any new problem then we can get blood workup before that. Dr. Negro Manuel Hem/Onc (This note was completed using the dictation program Fluency Direct. As such, there may be misspellings word substitutions, or other variations that should not change the essence of the clinical content of this encounter note. If there is need for further clarification, please direct questions to the provider listed above.) documented in this encounter Nursing Notes * Francesca Lopez MED ASSIST - 05/17/2024 1:28 PM EDT Patient identifed by name and birthdate Do you have any concerns about pain management for today's visit? Yes. Patient instructed to discuss pain concerns with provider during the visit today Living Will or Advance Directive for Health Care as noted on the problem list. [facility] is a way you can talk to your provider on line through e-mail. Would you like to sign up? I can activate it for you? ALREADY ACTIVE Filed Vitals: 05/17/24 1325 BP: 150/79 Pulse: 88 Temp: 36.2 C (97.2 F) TempSrc: Tympanic SpO2: 96% Weight: 114.5 kg (252 lb 6.4 oz) Patient was instructed to not get up on the exam table/exam chair until directed and assisted by their provider; patient is to remain seated in the chair/ wheelchair/ exam table/ exam chair for fall prevention and safety reasons. Patient is aware to have assistance to step down off exam table/exam chair with personnel. Patient voiced full comprehension of instructions. documented in this encounter Plan of Treatment Upcoming Encounters Date Type Department Care Team (Late st Contact Info) Description 06/30/2024 10:20 AM EST Office Visit General Internal Medicine [facility] [address] [place] [address] David Barrios MD [address] [place] [address] 11/10/2024 7:45 AM EDT Appointment Radiology, [address] [place] [address] 11/16/2024 11:15 AM EDT Office Visit Hematology/Oncology [facility] [address] [facility] [place] [address] Negro Manuel MD [address] [facility] [place] [address] Scheduled Orders Name Type Priority Associated Diagnoses Orde r Schedule PET CT SKULL BASE TO MID-THIGH FDG Medical Imaging Routine Lymphoma of kidney (HCC) 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) Ordered: 05/17/2024 CBC WITH WBC DIFFERENTIAL Lab STAT Lymphoma of kidney (HCC) 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) Expected: 11/15/2024, Expires: 05/17/2025 COMPREHENSIVE METABOLIC PANEL Lab STAT Lymphoma of kidney (HCC) 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) Expected: 11/15/2024, Expires: 05/17/2025 LD Lab Routine Lymphoma of kidney (HCC) 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) Expected: 11/15/2024, Expires: 05/17/2025 URIC ACID Lab STAT Lymphoma of kidney (HCC) 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) Expected: 11/15/2024, Expires: 05/17/2025 Scheduled Procedures Name Priority Associated Diagnoses Date/Ti [...] Cancer Screening 02/10/2022 COVID-19 Vaccine ( season) 2024 02/24/2022, 05/25/2021, 09/24/2020, Additional history exists Influenza Vaccine (FLU shot) (#1) 2024 04/30/2022, 04/24/2021, 04/28/2020, Additional history exists Depression Screening 06/03/2024 06/03/2023 HbA1c 12/08/2024 12/09/2023 GFR 05/16/2025 05/16/2024, 01/24, 12/17/2023, Additional history exists Albumin/Creatinine Ratio 12/08/2026 12/09/2023 Lipid Panel 05/16/2029 05/16/2024, 11/24, 07/13/2023, Additional history exists DTap/Tdap Vaccines (2 - Td or Tdap) 03/21/2031 [...] this encounter Medical Devices Implanted Type Area Taper Printed Circuit Layout Device Identifier Shelf Expiration Date Model / Serial / Lot Port Implant W/8f Poly Cath - [id number] Implanted:Qty : 1 on 02/25/2023 by Mick Rivera DO at OR [facility] Right: Chest CR BARD : PERIPHERAL VASCULAR [id number] 11/24/2023 [id number] / / [id number] documented as of this encounter Visit Diagnoses Diagnosis Lymphoma of kidney (HCC)- Primary Other malignant lymphomas of intra-abdominal lymph nodes 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 Question Answer Comments Discussion of Advance Directives occurred with: Patient Care Teams Floors Buffer Relationship Specialty Start Date End Date David [facility] MD [address] [facility] [address] PCP - General Internal Medicine 06/19/23 documented as of this encounter"
--- OUTSIDE RECORDS SUMMARY | 2024-05-23 15:05 | External Medical Summary | Summary of Care ---
Author Name Unknown Organization [facility] Address [address] [place] [address] Phone [phone] Care Team Providers Care Electric Clock Mechanic Name Role Phone David Barrios MD Primary Care Provider + Reason for Visit * Reason Onset Date Comments Test Results 05/16/2024 Manuel Encounter Details Date Type Department Care Team (Late st Contact Info) Description 05/16/2024 Telephone Hematology/Oncology [facility] [address] [place] [address] Services, Scheduling [address] [place] [address] Test Results (Manuel ) Allergies Active Allergy Reactions Criticality Noted Date Comments Kiwi Extract 05/08/2017 Kiwi fruit-rash documented as of this encounter (statuses as of 05/16/2024) Medications Medication Sig Dispensed Refills Start Date End Date Status Ondansetron HCl 8 MG Oral Tablet (Zofran)Indications: [...] 04/17/2023 Active clonazePAM 0.5 MG Oral Tablet (KlonoPIN)Indication [...] morning. Active Sildenafil Citrate 50 MG Oral TabletIndications:Er [...] 01/18/2024 Active Acyclovir 400 MG Oral Tablet (Zovirax)Indications [...] as of this encounter (statuses as of 05/16/2024) Active Problems Problem Noted Date Diagnosed Date [...] as of this encounter (statuses as of 05/16/2024) Resolved Problems Problem Noted Date Diagnosed Date Resolved Date Pancytopenia with fever 06/03/202311/24 Newly recognized murmur 06/03/202305/27 documented as of this encounter (statuses as of 05/16/2024) Immunizations Name Administration Dates Next Due COVID-19, [...] encounter Miscellaneous Notes * Telephone Encounter - Kalin Thakkar OSA - 05/16/2024 2:41 PM EDT Images from 05/12/[address] have been pushed to [facility] as requested. * Telephone Encounter - Ivy Liu RN - 05/16/2024 9:47 AM EDT Radiology: please have PET images from 05/12/24 pushed to [facility]. Thanks! * Telephone Encounter - Светлана Palacios OSA - 05/16/2024 9:37 AM EDT Daljit from [facility] called in asking for images from pt pet scan to be sent over as soon as possible for Dr. Covington. Fax number [phone] documented in this encounter Plan of Treatment Upcoming Encounters Date Type Department Care Team (Late st Contact Info) Description 05/17/2024 1:45 PM EDT Office Visit Hematology/Oncology [facility] [address] [facility] [place] [phone] Negro Manuel MD [address] [facility] [place] [address] 06/30/2024 10:20 AM EST Office Visit General Internal Medicine [facility] [address] [facility] [place] [address] David Barrios MD [address] [facility] [place] [address] Scheduled Procedures Name Priority Associated Diagnoses Date/Ti [...] this encounter Medical Devices Implanted Type Area Fishing Vessel Deckhand Device Identifier Shelf Expiration Date Model / Serial / Lot Port Implant W/8f Poly Cath - [id number] Implanted:Qty : 1 on 02/25/2023 by Mick Rivrea, at OR [facility] Right: Chest CR BARD : PERIPHERAL VASCULAR [id number] 11/24/2023 [id number] / / [id number] documented as of this encounter Advance Directives * Full Code (Latest Code Status on File) Date Activated Date Inactivated Comments 06/03/2023 7:46 PM 06/05/2023 4:10 PM This order reflects the patients wishes and were consensually agreed upon. Question Answer Comments Discussion of Advance Directives occurred with: Patient Care Teams Electric Clock Mechanic Relationship Specialty Start Date End Date David Barrios MD [address] [place] [address] PCP - General Internal Medicine 06/19/23 documented as of this encounter
--- OUTSIDE RECORDS SUMMARY | 2024-05-23 15:06 | External Medical Summary ---
Author Name Unknown Address Unknown Organization K1F:[facility]ORY [facility] - [address] [place] [address] Laboratory Report Ordering Provider Test Date Status FARIBA,HERNANDEZ 05/16/2024 07:13:17 Final Observation Date Value Abnormality Reference (Units ) Status Uric Acid 05/16/2024 07:13:17 4.9 3.4-7.0 (m g/dL) Final Performing Location [facility] - [address] [address]
--- OUTSIDE RECORDS SUMMARY | 2024-05-23 15:06 | External Medical Summary ---
Author Name Unknown Address Unknown Organization K1F:[facility] - [address] [address] Laboratory Report Ordering Provider Test Date Status MARY LINK 05/16/2024 07:13:17 Final Observation Date Value Abnormality Reference (Units ) Status LDH 05/16/2024 07:13:17 209 <=250 (U/L ) Final Performing Location [facility] - [address] [address]
--- OUTSIDE RECORDS SUMMARY | 2024-05-23 15:06 | External Medical Summary | Summary of Care ---
Author Name Unknown Organization [facility] Address [address] [place] [address] Phone [phone] Care Team Providers Care Stitcher Operator Name Role Phone David Barrios MD Primary Care Provider + Reason for Visit * Precert (Within 10 days (routine)) - Authorized Specialty Diagnoses / Procedures Referred By Contac t Referred To Contact Radiology Diagnoses History of lymphoma Procedures PET CT SKULL BASE TO MID-THIGH FDG IOF PET MISCELLANEOUS Negro Manuel MD [address] [place] [address] Referral ID Status Reason Start Date Expiration Date V isits Requested Visits Authorized [id number] Authorized 12/17/2023 06/20/2024 [id number] Encounter Details Date Type Department Care Team (Latest Contact Info) Description 05/12/2024 7:39 AM EDT - 05/12/2024 11:59 PM EDT Hospital Encounter Radiology, [facility] [address] [place] [address] Arrived Discharge Disposition: Home - Self Care Allergies Active Allergy Reactions Criticality Noted Date Comments Kiwi Extract 05/08/2017 Kiwi fruit-rash documented as of this encounter (statuses as of 05/13/2024) Medications Medication Sig Dispensed Refills Start Date [...] as of this encounter (statuses as of 05/13/2024) Active Problems Problem Noted Date Diagnosed Date [...] as of this encounter (statuses as of 05/13/2024) Resolved Problems Problem Noted Date Diagnosed Date Resolved Date Pancytopenia with fever 06/03/202311/24 Newly recognized murmur 06/03/202305/27 documented as of this encounter (statuses as of 05/13/2024) Immunizations Name Administration Dates Next Due COVID-19, [...] No 06/03/2023 documented as of this encounter Plan of Treatment Upcoming Encounters Date Type Department Care Team (Late st Contact Info) Description 05/17/2024 1:45 PM EDT Office Visit Hematology/Oncology [facility] [place] [phone] Negro Manuel MD [address] [place] [address] 06/30/2024 10:20 AM EST Office Visit General Internal Medicine [facility] [place] [address] [address] David Barrios MD [address] [place] [address] Scheduled Procedures Name Priority Associated Diagnoses Date/Ti [...] 12/09/2023 Lipid Panel 12/08/2028 12/09/2023, 06/26, 07/03/2014 DTap/Tdap Vaccines (2 - Td or Tdap) [...] this encounter Medical Devices Implanted Type Area Weapons System Instrument Mechanic Device Identifier Shelf Expiration Date Model / Serial / Lot Port Implant W/8f Poly Cath - [id number] Implanted:Qty : 1 on 02/25/2023 by Mick Rivera, DO at OR [facility] Right: Chest CR BARD : PERIPHERAL VASCULAR [id number] 11/24/2023 [id number] / / [id number] documented as of this encounter Procedures Procedure Name Priority Date/Time Associated Diagnosis Comments PET CT SKULL BASE TO MID-THIGH Routine 05/12/2024 9:33 AM EDT History of lymphoma documented in this encounter Results * PET CT SKULL BASE TO MID-THIGH FDG (05/12/2024 9:33 AM EDT) Anatomical Region Laterality Modality Body, Chest, Abdomen, Pelvis Pos itron Emission Tomography (PET) 05/12/2024 1:31 PM EDT Narrative 05/12/2024 1:29 PM EDT EXAM: PET CT SKULL BASE TO MID-THIGH FDG - 05/12/2024 - 05/12/2024 9:33 am HISTORY 63 y/o ,M,Lymphoma involving multiple sites including left kidney, spleen, widespread bony metastatic disease, 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 Completed chemotherapy treatment.. Subsequent evaluation. COMPARISON: December 18, 2023 and February 05, 2023 FDG-PET/CT. TECHNIQUE: The patient's fasting blood glucose was 172 mg/dL. Approximately 60 minutes following intravenous injection of 11.6 mCi 62-ffgezl-9-deoxyglucose (FDG) within the right antecubital fossa, low dose noncontrast CT images were obtained at 5 mm slice thickness from the skull basethrough mid thighs. Then, emission PET images were obtained through the same region. The noncontrast CT was used for anatomic localization and photon attenuation correction of the PET scan. The standardized uptake values (SUV) reported below are maximum values within a region of interest. FINDINGS: BACKGROUND METABOLIC ACTIVITY - Lower limit, mediastinal blood pool: SUV 2.8. - Upper limit, liver: SUV 4.6. HEAD Symmetric activity within the visualized skull base. NECK Metabolically-active cervical lymph nodes: Absent. CHEST LINES DEVICES: Implantable right IJV approach central venous catheter terminates in the right atrium. LUNG Focal metabolic activity within lungs: Absent. METABOLICALLY-ACTIVE LYMPH NODES Mediastinal: Absent. Hilar: Absent. Axillary: Absent. MEDIASTINUM Resolution metabolic activity within 2.8 cm residual anterior mediastinal opacity interspersed by fat, SUV 0.6. Normal heart size. No pericardial effusion. VESSELS Calcified coronary artery plaque burden: Moderate. Aortic valvular calcification: Mild. Thoracic aortic aneurysm: Absent. ABDOMEN LINES DEVICES: Absent. ABDOMINAL WALL/PERITONEUM: No ascites. INTRAPERITONEUM Metabolically-active intraperitoneal lymph nodes: Absent. Liver / spleen: Symmetric low intensity homogeneous metabolic activity throughout the parenchyma of the liver and spleen. Biliary: Unremarkable. Bowel: No small bowel dilatation or evidence for obstruction. Normal caliber appendix. Diverticulosis of the descending colon to sigmoid colon. No acute inflammatory changes of diverticulitis. RETROPERITONEUM Metabolically-active retroperitoneal lymph nodes: Absent. Adrenal glands: Symmetric low metabolic activity throughout both adrenal glands. Pancreas: Homogeneous low-level metabolic activity throughout the pancreatic parenchyma. No ductal dilatation. Kidneys: Nonobstructive right renal calculi. No hydronephrosis. Excreted radiotracer activity within the renal collecting systems and ureters. Abdominal aorta: No aneurysm. PELVIS Metabolically-active pelvic lymph nodes: Absent. Vasectomy clips in the scrotum. MUSCULOSKELETAL Focal metabolic activity within bones: Absent. IMPRESSION: Deauville score 1. Resolution of metabolically-active lymphoma. Procedure Note Devin Savage MD - 05/12/2024 EXAM: PET CT SKULL BASE TO MID-THIGH FDG - 05/12/2024 - 05/12/2024 9:33 am HISTORY 63 y/o ,M,Lymphoma involving multiple sites including left kidney, spleen,widespread bony metastatic disease, epidural tumors involving the lowerthoracic spine. Completed chemotherapy treatment.. Subsequentevaluation. COMPARISON: December 18, 2023 and February 05, 2023 FDG-PET/CT. TECHNIQUE: The patient's fasting blood glucose was 172 mg/dL. Approximately 60minutes following intravenous injection of 11.6 zSm11-zjdpab-3-bdacmystjcis (FDG) within the right antecubital fossa, lowdose noncontrast CT images were obtained at 5 mm slice thickness from theskull basethrough mid thighs. Then, emission PET images were obtainedthrough the same region. The noncontrast CT was used for anatomiclocalization and photon attenuation correction of the PET scan. Thestandardized uptake values (SUV) reported below are maximum values withina region of interest. FINDINGS: BACKGROUND METABOLIC ACTIVITY - Lower limit, mediastinal blood pool: SUV 2.8. - Upper limit, liver: SUV 4.6. HEAD Symmetric activity within the visualized skull base. NECK Metabolically-active cervical lymph nodes: Absent. CHEST LINES DEVICES: Implantable right IJV approach central venous catheterterminates in the right atrium. LUNG Focal metabolic activity within lungs: Absent. METABOLICALLY-ACTIVE LYMPH NODES Mediastinal: Absent. Hilar: Absent. Axillary: Absent. MEDIASTINUM Resolution metabolic activity within 2.8 cm residual anterior mediastinalopacity interspersed by fat, SUV 0.6. Normal heart size. No pericardial effusion. VESSELS Calcified coronary artery plaque burden: Moderate. Aortic valvular calcification: Mild. Thoracic aortic aneurysm: Absent. ABDOMEN LINES DEVICES: Absent. ABDOMINAL WALL/PERITONEUM: No ascites. INTRAPERITONEUM Metabolically-active intraperitoneal lymph nodes: Absent. Liver / spleen: Symmetric low intensity homogeneous metabolic activitythroughout the parenchyma of the liver and spleen. Biliary: Unremarkable. Bowel: No small bowel dilatation or evidence for obstruction. Normalcaliber appendix. Diverticulosis of the descending colon to sigmoidcolon. No acute inflammatory changes of diverticulitis. RETROPERITONEUM Metabolically-active retroperitoneal lymph nodes: Absent. Adrenal glands: Symmetric low metabolic activity throughout both adrenalglands. Pancreas: Homogeneous low-level metabolic activity throughout thepancreatic parenchyma. No ductal dilatation. Kidneys: Nonobstructive right renal calculi. No hydronephrosis. Excretedradiotracer activity within the renal collecting systems and ureters. Abdominal aorta: No aneurysm. PELVIS Metabolically-active pelvic lymph nodes: Absent. Vasectomy clips in the scrotum. MUSCULOSKELETAL Focal metabolic activity within bones: Absent. IMPRESSION: Deauville score 1. Resolution of metabolically-active lymphoma. Negro Manuel MD RAD NUCLEAR MED documented in this encounter Advance Directives * Full Code (Latest Code Status on File) Date Activated Date Inactivated Comments 06/03/2023 7:46 PM 06/05/2023 4:10 PM This order reflects the patients wishes and were consensually agreed upon. Question Answer Comments Discussion of Advance Directives occurred with: Patient Care Teams Stitcher Operator Relationship Specialty Start Date End Date David Barrios MD [address] [facility] [place] [address] PCP - General Internal Medicine 06/19/23 documented as of this encounter
--- OUTSIDE RECORDS SUMMARY | 2024-05-23 15:06 | External Medical Summary | Summary of Care ---
Author Name Unknown Organization [facility] Address [address] [place] [address] Phone [phone] Care Team Providers Care Brass Molder Helper Name Role Phone David Barrios MD Primary Care Provider + Reason for Visit * Precert (Within 10 days (routine)) - Authorized Specialty Diagnoses / Procedures Referred By Contac t Referred To Contact Radiology Diagnoses History of lymphoma Procedures PET CT SKULL BASE TO MID-THIGH FDG IOF PET MISCELLANEOUS Negro Manuel MD [address] [place] [address] Referral ID Status Reason Start Date Expiration Date V isits Requested Visits Authorized [id number] Authorized 12/17/2023 06/20/2024 [id number] Encounter Details Date Type Department Care Team (Latest Contact Info) Description 05/12/2024 7:38 AM EDT Hospital Encounter Radiology, [facility] [address] [place] [address] Arrived Discharge Disposition: Home - Self Care [...] 05/17/2024 1:45 PM EDT Office Visit Hematology/Oncology [facility] [place] [phone] Negro Manuel MD [address] [place] [id number] 06/30/2024 10:20 AM EST Office Visit General Internal Medicine [facility] [place] [address] [place] [address] David Barrios MD [address] [place] [address] Scheduled Procedures Name Priority Associated Diagnoses Date/Ti [...] this encounter Medical Devices Implanted Type Area Social Studies Teacher Device Identifier Shelf Expiration Date Model / Serial / Lot Port Implant W/8f Poly Cath - [id number] Implanted:Qty : 1 on 02/25/2023 by Mick Rivera, at OR [facility] Right: Chest CR BARD : PERIPHERAL VASCULAR [id number] 11/24/2023 [id number] / / [id number] documented as of this encounter Procedures Procedure Name Priority Date/Time Associated Diagnosis Comments PET CT SKULL BASE TO MID-THIGH Routine 05/12/2024 9:33 AM EDT History of lymphoma documented in this encounter Administered Medications Inactive Administered Medications - up to 3 most recent administrations Medication Order MAR Action Action Date Dose Rate Site fludeoxyglucose f-18 (Fdg) inj 12 millicurie 12 millicurie, Intravenous, ONCE, On Mellisa 05/12/24 at 0758, For 1 dose, Radiology Medication Routing (Non-IR) Given 05/12/2024 7:58 AM EDT 11.4 millicuries Antecubital Right documented in this encounter Advance Directives * Full Code (Latest Code Status on File) Date Activated Date Inactivated Comments 06/03/2023 7:46 PM 06/05/2023 4:10 PM This order reflects the patients wishes and were consensually agreed upon. Question Answer Comments Discussion of Advance Directives occurred with: Patient Care Teams Brass Molder Helper Relationship Specialty Start Date End Date David Barrios MD [address] [facility] [place] [address] PCP - General Internal Medicine 06/19/23 documented as of this encounter
--- OUTSIDE RECORDS SUMMARY | 2024-05-23 15:06 | External Medical Summary | Summary of Care ---
Author Name Unknown Organization [facility] Address [address] [place] [address] Phone [phone] Care Team Providers Care Chief Of Anesthesiology Name Role Phone David Barrios MD Primary Care Provider + Reason for Visit * Reason Comments Procedure Port flush Encounter Details Date Type Department Care Team ([facility] st Contact Info) Description 05/12/2024 9:30 AM EDT Nurse Only Hematology/Oncology Treatment, [facility] [address] [place] [address] [facility], [address] Hem Onc [address] [place] [address] Procedure (Port flush) Allergies Active Allergy Reactions Criticality Noted Date Comments Kiwi Extract 05/08/2017 Kiwi fruit-rash documented as of this encounter (statuses as of 05/12/2024) Medications Medication Sig Dispensed Refills Start Date [...] as of this encounter (statuses as of 05/12/2024) Active Problems Problem Noted Date Diagnosed Date [...] as of this encounter (statuses as of 05/12/2024) Resolved Problems Problem Noted Date Diagnosed Date Resolved Date Pancytopenia with fever 06/03/202311/24 Newly recognized murmur 06/03/202305/27 documented as of this encounter (statuses as of 05/12/2024) Immunizations Name Administration Dates Next Due COVID-19, [...] as of this encounter Nursing Notes * Jazz Garcia RN - 05/12/2024 9:40 AM EDT Pt in bay#11 9:40 AM VAD flushed with 10 ml NSS and Heparin 5 ml (100 units/ml). Shahid needle removed intact Patient left IVC by ambulating. Unaccompanied. Voiced no complaints. Jazz Garcia RN 05/12/2024. documented in this encounter Plan of Treatment Upcoming Encounters Date Type Department Care Team (Late st Contact Info) Description 05/17/2024 1:45 PM EDT Office Visit Hematology/Oncology [place] [address] [place] [phone] Negro Manuel MD [address] [place] [address] 06/30/2024 10:20 AM EST Office Visit General Internal Medicine [employer] [address] [facility] [place] [place] [address] David Barrios MD [address] [facility] [place] [address] Scheduled Procedures Name Priority Associated Diagnoses Date/Ti [...] this encounter Medical Devices Implanted Type Area Healthcare Administrative Assistant Device Identifier Shelf Expiration Date Model / Serial / Lot Port Implant W/8f Poly Cath - [id number] Implanted:Qty : 1 on 02/25/2023 by Mick Rivera, at OR [facility] Right: Chest CR BARD : PERIPHERAL VASCULAR [id number] 11/24/2023 [id number] / / [id number] documented as of this encounter Visit Diagnoses Diagnosis History of lymphoma- Primary Personal history of other lymphatic and hematopoietic neoplasm Encounter for care related to vascular access port Fitting and adjustment of vascular catheter documented in this encounter Administered Medications Active Administered Medications - up to 3 most recent administrations Medication Order MAR Action Action Date Dose Rate Site hEParin 100 UNIT/ML Lock Flush inj 500 Units 500 Units (5 mL), IV Lock, PRN Other, IV Flush, Starting on Mellisa 05/12/24 at 0935, Until Thu05/13/24 at 0934, For 24 hours, Do not flush if lock, PICC, or central line not in place; IV infusing or unable to flush. Given 05/12/2024 9:40 AM EDT 500 Units sodium chloride 0.9 % flush central line 10 mL 10 mL, IV Push, PRN Other, IV Flush, Starting on Mellisa 05/12/24 at 0935, Until 05/13/24 at 0934, For 24 hours, Do not flush if lock, PICC, or central line not in place; IV infusing or unable to flush. Given 05/12/2024 9:40 AM EDT 10 mL documented in this encounter Advance Directives * Full Code (Latest Code Status on File) Date Activated Date Inactivated Comments 06/03/2023 7:46 PM 06/05/2023 4:10 PM This order reflects the patients wishes and were consensually agreed upon. Question Answer Comments Discussion of Advance Directives occurred with: Patient Care Teams Chief Of Anesthesiology Relationship Specialty Start Date End Date David Barrios MD [address] [place] [address] PCP - General Internal Medicine 06/19/23 documented as of this encounter
--- OUTSIDE RECORDS SUMMARY | 2024-05-23 15:06 | External Medical Summary | Summary of Care ---
Author Name Unknown Organization [facility] Address [address] [place] [address] Phone [phone] Care Team Providers Care Park Interpretive Specialist Name Role Phone David Barrios MD Primary Care Provider + Reason for Visit * Reason Comments Outpatient Testing Encounter Details Date Type Department Care Team ([facility] st Contact Info) Description 05/16/2024 7:20 AM EDT Laboratory Laboratory, [facility] [address] [place] [phone] [facility], Lab [address] [place], [place] [id number] Elevated LDL cholesterol level; History of lymphoma Allergies Active Allergy Reactions Criticality Noted Date [...] 05/17/2024 1:45 PM EDT Office Visit Hematology/Oncology [facility] [place] [address] [place] [phone] Negro Manuel MD 200 [facility] [place] [address] 06/30/2024 10:20 AM EST Office Visit General Internal Medicine [facility] [place] [address] [place] [id number] David Barrios MD [address] [place] [address] Pending Results Name Type Priority Associated Diagnoses Date /Time LIPID PANEL WITH DIRECT LDL IF TG IS HIGH Lab Routine Elevated LDL cholesterol level 05/16/2024 7:13 AM EDT COMPREHENSIVE METABOLIC PANEL Lab STAT History of lymphoma 05/16/2024 7:13 AM EDT LD Lab STAT History of lymphoma 05/16/2024 7:13 AM EDT URIC ACID Lab STAT History of lymphoma 05/16/2024 7:13 AM EDT Scheduled Procedures Name Priority Associated Diagnoses Date/Ti [...] this encounter Medical Devices Implanted Type Area Children'S Program Coordinator Device Identifier Shelf Expiration Date Model / Serial / Lot Port Implant W/8f Poly Cath - [id number] Implanted:Qty : 1 on 02/25/2023 by Mick Rivera, at OR [facility] Right: Chest CR BARD : PERIPHERAL VASCULAR [id number] 11/24/2023 [id number] / / [id number] documented as of this encounter Procedures Procedure Name Priority Date/Time Associated Diagnosis Comments DIFFERENTIAL, AUTOMATED STAT 05/16/2024 7:13 AM EDT History of lymphoma CBC STAT 05/16/2024 7:13 AM EDT History of lymphoma CBC STAT 05/16/2024 7:13 AM EDT History of lymphoma documented in this encounter Results * (ABNORMAL) DIFFERENTIAL, AUTOMATED (05/16/2024 7:13 AM EDT) WBC 7.07 4.00 - 10.80 K/uL 05/16/2024 7:26 AM EDT LAB[facility] Neutrophils % 77.9(H) 40.0 - 75.0 % 05/16/2024 7:26 AM EDT LAB[facility] Lymphocytes % 6.5(L) 18.0 - 42.0 % 05/16/2024 7:26 AM EDT [facility] Monocytes % 8.6 1.0 - 11.0 % 05/16/2024 7:26 AM EDT [facility] Eosinophils % 5.1 0.0 - 6.0 % 05/16/2024 7:26 AM EDT [facility] Basophils % 1.1 0.0 - 2.0 % 05/16/2024 7:26 AM EDT [facility] Immature Granulocytes % 0.8 0.0 - 2.0 % 05/16/2024 7:26 AM EDT LAB[facility] Absolute Neutrophils 5.50 1.80 - 7.70 K/uL 05/16/2024 7:26 AM EDT LAB[facility] Absolute Lymphocytes 0.46(L) 1.00 - 4.80 K/ul 05/16/2024 7:26 AM EDT [facility] Absolute Monocytes 0.61 0.00 - 1.10 K/uL 05/16/2024 7:26 AM EDT [facility] Absolute Eosinophils 0.36 0.00 - 0.70 K/uL 05/16/2024 7:26 AM EDT LAB[facility] Absolute Basophils 0.08 0.00 - 0.20 K/uL 05/16/2024 7:26 AM EDT LABORATORY [facility] Absolute Immature Granulocytes 0.06 0.00 - 0.20 K/uL 05/16/2024 7:26 AM EDT LABORATORY [facility] Blood Venous blood specimen / Unknown Venipuncture / Unknown 05/16/2024 7:13 AM EDT 05/16/2024 7:13 AM EDT Negro Manuel MD LAB BLOOD ORDERABLES LABORATORY [facility] [address] [place] [address] * (ABNORMAL) CBC (05/16/2024 7:13 AM EDT) WBC 7.07 4.00 - 10.80 K/uL 05/16/2024 7:26 AM EDT LABORATORY [facility] RBC 3.95 4.50 - 5.25 M/uL 05/16/2024 7:26 AM EDT LABORATORY [facility] HGB 13.2(L) 14.0 - 16.8 g/dL 05/16/2024 7:26 AM EDT LABORATORY [facility] HCT 40.4 40.0 - 48.4 % 05/16/2024 7:26 AM EDT LABORATORY [facility] MCV 102.3 82.0 - 99.5 fL 05/16/2024 7:26 AM EDT LABORATORY [facility] MCH 33.4 27.0 - 34.0 pg 05/16/2024 7:26 AM EDT LABORATORY [facility] MCHC 32.7 32.0 - 36.0 g/dL 05/16/2024 7:26 AM EDT LABORATORY [facility] RDW 14.5 11.5 - 15.5 % 05/16/2024 7:26 AM EDT LABORATORY [facility] PLT 231 140 - 400 K/uL 05/16/2024 7:26 AM EDT LABORATORY [facility] MPV 9.2 6.6 - 11.1 fL 05/16/2024 7:26 AM EDT LABORATORY [facility] nRBCs 0 <=0 /100 WBCs 05/16/2024 7:26 AM EDT LAB[facility] Blood Venous blood specimen / Unknown Venipuncture / Unknown 05/16/2024 7:13 AM EDT 05/16/2024 7:13 AM EDT Negro Manuel MD LAB BLOOD ORDERABLES LAB[facility]ATORY [facility] [address] [place] [address] documented in this encounter Visit Diagnoses Diagnosis Elevated LDL cholesterol level Pure hypercholesterolemia History of lymphoma Personal history of other lymphatic and hematopoietic neoplasm documented in this encounter Advance Directives * Full Code (Latest Code Status on File) Date Activated Date Inactivated Comments 06/03/2023 7:46 PM 06/05/2023 4:10 PM This order reflects the patients wishes and were consensually agreed upon. Question Answer Comments Discussion of Advance Directives occurred with: Patient Care Teams Park Interpretive Specialist Relationship Specialty Start Date End Date David Barrios MD [address] [place] [address] PCP - General Internal Medicine 06/19/23 documented as of this encounter
--- OUTSIDE RECORDS SUMMARY | 2024-05-23 15:06 | External Medical Summary | Summary of Care ---
Author Name Unknown Organization [facility] Address [address] [place] [address] Phone [phone] Care Team Providers Care Prospecting Driller Name Role Phone David Barrios MD Primary Care Provider + Reason for Visit * Reason Comments eRx-Medication Refill Encounter Details Date Type Department Care Team (Late st Contact Info) Description 05/09/2024 Refill General Internal Medicine [facility] [address] [place] [address] David Barrios MD [address] [place] [address] Allergies Active Allergy Reactions Criticality Noted Date Comments Kiwi Extract 05/08/2017 Kiwi fruit-rash documented as of this encounter (statuses as of 05/11/2024) Medications Medication Sig Dispensed Refills Start Date End Date Status Ondansetron HCl 8 MG Oral Tablet (Zofran)Indicatio [...] morning. Active Sildenafil Citrate 50 MG Oral TabletIndications [...] THE MORNING 90 Tablet 3 05/11/2024 Active Losartan Potassium 50 MG Oral Tablet (Cozaar) Take 1 Tablet by mouth in the morning. 4 Discontinued documented as of this encounter (statuses as of 05/11/2024) Active Problems Problem Noted Date Diagnosed Date [...] as of this encounter (statuses as of 05/11/2024) Resolved Problems Problem Noted Date Diagnosed Date Resolved Date Pancytopenia with fever 06/03/202311/24 Newly recognized murmur 06/03/202305/27 documented as of this encounter (statuses as of 05/11/2024) Immunizations Name Administration Dates Next Due COVID-19, [...] Telephone Encounter - David Barrios MD - 05/11/2024 9:58 AM EDTSigned Prescriptions: Disp Refills Losartan Potassium 50 MG Oral Tablet (Coza*90 Tab*3 Sig: TAKE 1 TABLET BY MOUTH ONCE DAILY IN THE MORNING Authorizing Provider: DAVID BARRIOS * Telephone Encounter - Ricki Bowles [facility] - 05/11/2024 9:50 AM EDT Pharmacists cannot authorize refills for meds listed as "historical" in chart. Please approve if appropriate. Pending Prescriptions: Disp Refills Losartan Potassium 50 MG Oral Tablet [Phar*90 Tab*3 Sig: TAKE 1 TABLET BY MOUTH ONCE DAILY IN THE MORNING Last Visit: 12/07/2023 (in office), Visit date not found (telemedicine) Next Visit: 06/30/2024 If no future appointments scheduled, and last appointment is greater than a year ago, please schedule patient for a follow-up appointment Last date the medication was ordered: historical Pharmacy: [facility] [place] [address] [place] [address] Is this request for a controlled substance?No Urine Drug Screen:No results found for this or any previous visit. Patient Phone Numbers Labs: Lab Results Component Value Date/Time CREAT 0.8 02/04/2024 07:05 AM POTASSIUM 4.0 02/04/2024 07:05 AM LDL 151 (H) 12/09/2023 06:55 AM LDL 159 07/03/2014 07:08 AM ALT 25 02/04/2024 07:05 AM ALT 26 07/03/2014 07:08 AM HGBA1C 5.7 (H) 12/09/2023 06:55 AM Brad OsorioPh. Clinical Pharmacist [facility] ([facility]) [address] [place] [address]: [phone] 05/11/2024,9:50 AM * Telephone Encounter - Ricki Bowles RPh - 05/11/2024 9:50 AM EDTPending Prescriptions: Disp Refills Losartan Potassium 50 MG Oral Tablet [Phar*90 Tab*3 Sig: TAKE 1 TABLET BY MOUTH ONCE DAILY IN THE MORNING documented in this encounter Plan of Treatment Upcoming Encounters Date Type Department Care Team (Late st Contact Info) Description 05/12/2024 7:45 AM EDT [address], [address] [address] 05/12/2024 9:00 AM EDT Nurse Only Hematology/[place] [address], [address] [address] [facility], Chair9 Hem Onc [address] [place], [place] [address] 05/12/2024 9:00 AM EDT [address], [address] [address] 05/17/2024 1:45 PM EDT Office Visit Hematology/Oncology [address] [place] [address] Negro Manuel MD [address] [place] [address] [place] [address] 06/30/2024 10:20 AM EST Office Visit General Internal Medicine [address] [place] [address] David Barrios MD [address] [place] [address] [place] [address] Scheduled Procedures Name Priority Associated Diagnoses Date/Ti [...] 02/10/2019 Colorectal Cancer Screening 02/10/2022 COVID-19 Vaccine (5 - 2024-25 season) 2024 02/24/2022, 05/25/2021, 09/24/2020, Additional history [...] this encounter Medical Devices Implanted Type Area Salary Manager Device Identifier Shelf Expiration Date Model / Serial / Lot Port Implant W/8f Poly Cath - [id number] Implanted:Qty : 1 on 02/25/2023 by Mick Rivera DO at OR [facility] Right: Chest CR BARD : PERIPHERAL VASCULAR [id number] 11/24/2023 [id number] / / [id number] documented as of this encounter Advance Directives * Full Code (Latest Code Status on File) Date Activated Date Inactivated Comments 06/03/2023 7:46 PM 06/05/2023 4:10 PM This order reflects the patients wishes and were consensually agreed upon. Question Answer Comments Discussion of Advance Directives occurred with: Patient Care Teams Prospecting Driller Relationship Specialty Start Date End Date David Barrios MD [address] [place] [address] PCP - General Internal Medicine 06/19/23 documented as of this encounter
--- OUTSIDE RECORDS SUMMARY | 2024-05-23 15:06 | External Medical Summary ---
Author Name Unknown Address Unknown Organization K1F:LABORATORY [facility] - [address] [place] [address] [place] [address] Laboratory Report Ordering Provider Test Date Status MARY LINK 05/16/2024 07:13:17 Final Observation Date Value Abnormality Reference (Units ) Status BUN 05/16/2024 07:13:17 20 6-20 (mg/dL) Final Creatinine 05/16/2024 07:13:17 0.8 0.6-1.2 (mg/dL) Final Glomerular filtration rate/1.73 sq M.predicted [Volume Rate/Area] in Serum, Plasma or Blood by Creatinine-based formula (CKD-EPI) 05/16/2024 07:13:17 >90 >=60 (mL/min) Final eGFR is calculated based on the CKD-EPI 2020 equation. Sodium 05/16/2024 07:13:17 140 135-146 (m mol/L) Final Potassium 05/16/2024 07:13:17 4.4 3.5-5.1 (m mol/L) Final Cl 05/16/2024 07:13:17 104 98-107 (mm ol/L) Final CO2 05/16/2024 07:13:17 25 22-32 (mmo l/L) Final Anion gap 05/16/2024 07:13:17 11 7-15 (mmol /L) Final Glucose 05/16/2024 07:13:17 159 Above high normal 70 -120 (mg/dL) Final Albumin 05/16/2024 07:13:17 4.1 3.8-5.0 (g /dL) Final AST (Aspartate aminotransferase) 05/16/2024 07:13:17 16 10-50 (U/L) Fin al Alk Phos 05/16/2024 07:13:17 161 Above high normal 35 -130 (U/L) Final Bilirubin, Total 05/16/2024 07:13:17 0.4 <=1 .2 (mg/dL) Final Calcium 05/16/2024 07:13:17 9.2 8.4-10.2 ( mg/dL) Final Protein 05/16/2024 07:13:17 6.7 6.0-8.3 (g /dL) Final ALT (Alanine aminotransferase) 05/16/2024 07:13:17 18 10-50 (U/L) Ciro mccloud Performing Location LABORATORY [place] [address] [address] [place] [address]
--- OUTSIDE RECORDS SUMMARY | 2024-05-23 15:06 | External Medical Summary ---
Author Name Unknown Address Unknown Organization K1F[facility] [address] [facility] [place] [address] Laboratory Report Ordering Provider Test Date Status MARY LINK 05/16/2024 07:13:17 Final Observation Date Value Abnormality Reference (Units ) Status SYNC LEUKOCYTES IN BLOOD BY AUTOMATED COUNT 05/16/2024 07:13:17 7.07 4.00-10.80 (K/uL) Final Segs 05/16/2024 07:13:17 77.9 Above high normal 40.0-75.0 (%) Final Lymphs % 05/16/2024 07:13:17 6.5 Below low normal 18.0-42.0 (%) Final Monos 05/16/2024 07:13:17 8.6 1.0-11.0 (%) Final Eosinophils 05/16/2024 07:13:17 5.1 0.0-6.0 (%) Final Basos 05/16/2024 07:13:17 1.1 0.0-2.0 (%) Final Immature Granulocyte, Percent 05/16/2024 07:13:17 0.8 0.0-2.0 (%) Final Absolute Segs 05/16/2024 07:13:17 5.50 1.80-7.70 (K/uL) Final Lymphs, absolute 05/16/2024 07:13:17 0.46 Below low normal 1.00-4.80 (K/ul) Final Monos, Abs 05/16/2024 07:13:17 0.61 0.00-1.10 (K/uL) Final Eos, Abs 05/16/2024 07:13:17 0.36 0.00-0.70 (K/uL) Final Basos, Abs 05/16/2024 07:13:17 0.08 0.00-0.20 (K/uL) Final Immature Granulocytes, Number 05/16/2024 07:13:17 0.06 0.00-0.20 (K/uL) Final Performing Location LABORATORY [facility] - [address] [place], [place] [address]alanna Fernandez. [place] [address]
--- OUTSIDE RECORDS SUMMARY | 2024-05-23 15:06 | External Medical Summary | Summary of Care ---
Author Name Unknown Organization [facility] Address [address] [place] [address] Phone [phone] Care Team Providers Care Development Writer Name Role Phone David Barrios MD Primary Care Provider + Reason for Visit * Reason Comments Procedure Port flush Encounter Details Date Type Department Care Team ([facility] st Contact Info) Description 04/01/2024 9:00 AM EDT Nurse Only Hematology/Oncology Treatment, [facility] 400 [place] [address] [facility], Chair10 Hem Onc [address] [place] [address] Procedure (Port flush) Allergies Active Allergy Reactions [...] 1 Tablet by mouth in the morning. Discontinued documented as of this encounter (statuses [...] of this encounter Nursing Notes * Jazz Garcia, RN - 04/01/2024 8:59 AM EDT Pt in bay#3 VAD flushed with 10 ml NSS and Heparin 5 ml (100 units/ml). Shahid needle removed intact. Patient left IVC by ambulating. Unaccompanied. Voiced no complaints. Jazz Garcia RN documented in this encounter Plan of Treatment Upcoming Encounters Date Type Department Care Team (Late st Contact Info) Description 05/12/2024 7:45 AM EDT Appointment Radiology, [address] [place] [address] 05/12/2024 9:00 AM EDT Nurse Only Hematology/Oncology Treatment, [address] [place] [address] [facility], Chair9 Hem Onc [address] [place] [address] 05/12/2024 9:00 AM EDT Appointment Radiology, [facility] 400 [facility] [place] [address] 05/17/2024 1:45 PM EDT Office Visit Hematology/Oncology [facility] [address] [facility] [place] [phone] Negro Manuel MD 200 [facility] [place] [address] 06/30/2024 10:20 AM EST Office Visit General Internal Medicine [facility] [address] [facility] [place] [address] David Barrios MD 200 [facility] [place] [address] Scheduled Procedures Name Priority Associated Diagnoses Date/Ti [...] this encounter Medical Devices Implanted Type Area Marketing Campaign Analyst Device Identifier Shelf Expiration Date Model / Serial / Lot Port Implant W/8f Poly Cath - [id number] Implanted:Qty : 1 on 02/25/2023 by Mick Rivera, at OR [facility] Right: Chest CR BARD : PERIPHERAL VASCULAR [id number] 11/24/2023 [id number] / / [id number] documented as of this encounter Visit Diagnoses [...] Lock, PRN Other, IV Flush, Starting on Thu04/01/24 at 0853, Until Thu04/01/24 at 1300, For 24 hours, Do not flush if lock, PICC, or central line not in place; IV infusing or unable to flush. Given 04/01/2024 8:58 AM EDT 500 Units sodium chloride 0.9 % flush central line 10 mL 10 mL, IV Push, PRN Other, IV Flush, Starting on Thu04/01/24 at 0853, Until Thu04/01/24 at 1300, For 24 hours, Do not flush if lock, PICC, or central line not in place; IV infusing or unable to flush. Given 04/01/2024 8:58 AM EDT 10 mL documented in this encounter Advance Directives * Full Code (Latest Code Status on File) Date Activated Date Inactivated Comments 06/03/2023 7:46 PM 06/05/2023 4:10 PM This order reflects the patients wishes and were consensually agreed upon. Question Answer Comments Discussion of Advance Directives occurred with: Patient Care Teams Development Writer Relationship Specialty Start Date End Date David Barrios MD 200 [place] [address] PCP - General Internal Medicine 06/19/23 documented as of this encounter
--- OUTSIDE RECORDS SUMMARY | 2024-05-23 15:06 | External Medical Summary | Summary of Care ---
Author Name Unknown Organization [facility] [address] [place] [address] Phone [phone] Care Team Providers Care Technical Writer And Editor Name Role Phone David Barrios MD Primary Care Provider + Reason for Visit * Reason Onset Date Comments Medical Records Request 05/12/2024 Encounter Details Date Type Department Care Team (Late st Contact Info) Description 05/12/2024 Telephone Radiology, [facility] [address] [place] [address] Requisition, External Radiology [address] [place] [address] Medical Records Request Allergies Active Allergy Reactions Criticality Noted Date [...] encounter Miscellaneous Notes * Telephone Encounter - Beatrice Ray OSA - 05/12/2024 7:44 AM EDT Patient came for a test and requested an imaging disc of the test. Confirmed identification and hadthem sign the release of information form. The disc was made and gave to the patient. documented in this encounter Plan of Treatment Upcoming Encounters Date Type Department Care Team (Late st Contact Info) Description 05/12/2024 7:39 AM EDT Hospital Encounter Radiology, [address] [place] [address] Arrived 05/12/2024 9:00 AM EDT Nurse Only Hematology/Oncology Treatment, [address] [address] [facility], Chair9 Hem Onc 400 [facility] [place] [address] 05/17/2024 1:45 PM EDT Office Visit Hematology/Oncology [facility] 200 [facility] [place] [address] Negro Manuel MD 200 [facility] [place] [address] 06/30/2024 10:20 AM EST Office Visit General Internal Medicine [facility] [place] 200 [facility] [place] [address] David Barrios MD 200 [facility] [place] [address] Scheduled Procedures Name Priority Associated Diagnoses Date/Ti [...] this encounter Medical Devices Implanted Type Area Project Controller Device Identifier Shelf Expiration Date Model / Serial / Lot Port Implant W/8f Poly Cath - [id number] Implanted:Qty : 1 on 02/25/2023 by Mick Rivera DO at OR [facility] Right: Chest CR BARD : PERIPHERAL VASCULAR [id number] 11/24/2023 [id number] / / [id number] documented as of this encounter Advance Directives * Full Code (Latest Code Status on File) Date Activated Date Inactivated Comments 06/03/2023 7:46 PM 06/05/2023 4:10 PM This order reflects the patients wishes and were consensually agreed upon. Question Answer Comments Discussion of Advance Directives occurred with: Patient Care Teams Technical Writer And Editor Relationship Specialty Start Date End Date David Barrios MD [address] [place] [address] PCP - General Internal Medicine 06/19/23 documented as of this encounter
--- OUTSIDE RECORDS SUMMARY | 2024-05-23 15:06 | External Medical Summary ---
Author Name Unknown Address Unknown Organization K1F:LABORATORY [facility] - [address] [place] [address] Laboratory Report Ordering Provider Test Date Status MARY LINK 05/16/2024 07:13:17 Final Observation Date Value Abnormality Reference (Units ) Status WBC, Total 05/16/2024 07:13:17 7.07 4.00-10.80 (K/uL) Final RBC 05/16/2024 07:13:17 3.95 4.50-5.25 (M/uL) Final Hemoglobin 05/16/2024 07:13:17 13.2 Below low normal 14.0-16.8 (g/dL) Final HCT 05/16/2024 07:13:17 40.4 40.0-48.4 (%) Final MCV 05/16/2024 07:13:17 102.3 82.0-99.5 (fL) Final MCH 05/16/2024 07:13:17 33.4 27.0-34.0 (pg) Final MCHC 05/16/2024 07:13:17 32.7 32.0-36.0 (g/dL) Final RDW 05/16/2024 07:13:17 14.5 11.5-15.5 (%) Final Platelets 05/16/2024 07:13:17 231 140-400 (K/uL) Final MPV 05/16/2024 07:13:17 9.2 6.6-11.1 (fL) Final Nucleated erythrocytes/100 leukocytes [Ratio] in Blood by Automated count 05/16/2024 07:13:17 0 <=0 (/100 WBCs) Final Performing Location LABORATORY [facility] - [address] [address]
--- OUTSIDE RECORDS SUMMARY | 2024-05-23 15:06 | External Medical Summary ---
Author Name Unknown Address Unknown Organization K01:[facility] [place] [address] [facility] [place] [address] Laboratory Report Ordering Provider Test Date Status DO JOELLELASHAETEIN 05/16/2024 07:13:17 Final Observation Date Value Abnormality Reference (Units ) Status Triglyceride 05/16/2024 07:13:17 129 <=174 ( mg/dL) Final Triglyceride Reference Range s (mg/dL):
<150 Acceptable
150-174 Borderline high
175-499 High
>=500 Very high Cholesterol 05/16/2024 07:13:17 189 <200 (mg /dL) Final Total Cholesterol Reference Ranges (mg/dL):
<200 Desirable
200-239 Borderline high
>=240 High HDL 05/16/2024 07:13:17 48 >39 (mg/dL ) Final HDL Cholesterol Reference Ra nges (mg/dL):
>=60 High (Desirable)
<50 Low (Undesirable) For Females
<40 Low (Undesirable) For Males NON-HDL CHOLESTEROL 05/16/2024 07:13:17 141 <=159 (mg/dL) Final Non-HDL Cholesterol Referenc e Range (mg/dL):
<100 Target level for high risk ASCVD patient
<130 Optimal for general population
130-159 Near optimal for general population
160-189 Borderline High
190-219 High
>=220 Very High LDL, (calculated) 05/16/2024 07:13:17 115 <= 129 (mg/dL) Final LDL Cholesterol Reference Ra nges (mg/dL):
<70 Target level for high risk ASCVD patient
<100 Optimal for general population
100-129 Near optimal for general population
130-159 Borderline high
160-189 High
>=190 Very high Performing Location [facility] [place] [address] [place] [address]
[2024-05-23] MEDS ORDERED: METOCLOPRAMIDE HCL INJ 5 MG/ML 2 ML VIAL IV PRN (16:32)
[2024-05-23] MEDS ORDERED: bisacodyL 10 MG SUPP PR PRN (16:32)
[2024-05-23] MEDS ORDERED: NALOXONE HCL 0.4 MG/1 ML VIAL/CARP IV PRN (16:32)
[2024-05-23] MEDS ORDERED: clonazePAM 0.5 MG TAB PO PRN (16:32)
[2024-05-23] MEDS ORDERED: HYDROmorphone INJ 0.5 MG/0.5 ML SYR IV PRN (16:32)
[2024-05-23] MEDS ORDERED: MAGNESIUM HYDROXIDE SUSP 30 ML UDC PO PRN (16:32)
[2024-05-23] MEDS ORDERED: PROCHLORPERAZINE MALEATE 10 MG TAB PO PRN (16:32)
[2024-05-23] MEDS ORDERED: oxyCODONE HCL IR 5 MG TAB (IMMEDIATE RELEASE) PO PRN (16:32)
[2024-05-23] MEDS ORDERED: ONDANSETRON 4 MG OD TAB PO PRN (16:39)
[2024-05-23] MEDS: GABAPENTIN 600 MG DOSE PO SCH (16:52)
[2024-05-23] MEDS: KETOROLAC 30 MG/ML VIAL IV SCH (17:05)
--- NOTE | 2024-05-23 18:30 | XRay Report ---
XR knee RT 1 or 2V routine CLINICAL HISTORY: Surgical Post Op TECHNIQUE: 2 views of the right knee were obtained. Comparison: Comparison is made to knee radiographs 05/04/2024 FINDINGS: Patient is status post total knee arthroplasty with expected postsurgical changes including soft tiss ue swelling and subcutaneous emphysema. No periarticular lucency or hardware fracture is seen. IMPRESSION: Expected postoperative appearance status post placement of total knee arthroplasty. ACT 112: Negative or not required by law. Electronically signed by: Clifton Steven M.D. 05/23/2024 6:29 PM
[2024-05-23] MEDS: SENNA 8.6 MG TAB PO SCH (20:55)
[2024-05-23] MEDS: ASPIRIN 81 MG ECTAB PO SCH (20:56)
[2024-05-23] MEDS: DOCUSATE SODIUM 100 MG CAP PO SCH (20:56)
[2024-05-23] MEDS: GABAPENTIN 300 MG CAP PO SCH (20:57)
[2024-05-23] MEDS: METHOCARBAMOL 500 MG TABLET PO SCH (20:57)
[2024-05-23] MEDS: ACYCLOVIR 400 MG TAB PO SCH (20:57)
--- NOTE | 2024-05-24 07:05 | Orthopedic Progress Note ---
Date of Service May 24, 2024 Assessment & Plan (1) Status post right knee replacement: Overall he is doing fairly well. He is not having much pain in the right knee. He will be seen by physical therapy today for ambulation and range of motion exercises. The nursing staff can change his dressing after physical therapy. He is on aspirin for DVT prophylaxis. He can be discharged to home later today. He will follow-up with orthopedics in 2 weeks. Racquel Temple was seen and examined at bedside this morning. Overall he is doing fairly well. He is not having much pain in the right knee. Has been up and ambulating to the bathroom. He has no complaints.. Review of Systems All systems reviewed & are unremarkable except as noted in HPI & below. Physical Exam On physical exam of the right knee, the dressing is clean and dry. His leg is out full extension. He has active dorsiflexion plantarflexion of his right ankle.. Results & Data Results & Data Laboratory Results . Diagnostic Findings Postoperative x-rays of the right knee show the prosthesis to be in anatomic alignment without any evidence of fracture, dislocation, or loosening.. PG Care Time/CCT Total # of Minutes Spent Total Time Spent with Patient: Total time spent is greater than 50% in coordination of care (as documented) at patient's floor/unit and/or counseling patient: Coding Level of Care Code 42522 Post Operative Follow-Up Diagnoses Status post right knee replacement Z96.651
--- NOTE | 2024-05-24 07:06 | Discharge Summary ---
Date of Service May 24, 2024 Principal Diagnosis Same as "Discharge Diagnosis" noted below under Discharge Instructions. Discharge Exam On physical exam of the right knee, the dressing is clean and dry. His leg is out full extension. He has active dorsiflexion plantarflexion of his right ankle.. Discharge Data Procedures Performed Operation Date: 05/23/24 12:00 Actual Procedures p Right Total Knee Arthroplasty(Right) - Ricki Pacheco DO Ordered Studies 05/23/24 05:00 US - OR guided needle placemen Routine Hospital Course (1) Status post right knee replacement: On May 23, [address] [facility] and underwent a right knee replacement without complication. He had a spinal anesthetic. Postoperatively he was started on aspirin for DVT prophylaxis and transferred to the general orthopedic floors. His hospital course was uneventful. On postop day #1, his vital signs were stable and his pain was well-controlled. He was able to participate well with physical therapy doing ambulation and range of motion exercises. He was then discharged to home. He will follow-up with orthopedics in 2 weeks. PG Care Time/CCT Total # of Minutes Spent Total Time Spent with Patient: Total time spent is greater than 50% in coordination of care (as documented) at patient's floor/unit and/or counseling patient: Discharge Plan Discharge Items Patient Disposition: Home - Self-Care Reason For Visit: DJD Knee Right Discharge Diagnosis: Right knee replacement Activity: Per Instructions section Non-emergency contact: Surgeon Call non-emergency contact if: your wound has increased redness and your wound has increased drainage Follow-up/Referrals: PCP,NO [Primary Care Provider] - Diet: Regular Addtl Attending Provider Instructions: Activity and Therapy Recommendations: * If you are using [facility] then therapy will be provided at your home until they feel you have accomplished all of your goals. * If you are using [facility] then Physical Therapy will be provided until they feel you are ready to start Outpatient Physical Therapy. * If you are not using home therapy then Outpatient Physical Therapy should start about 3-5 days from your day of surgery. Therapy will last about 6-10 weeks * It is important not to put a pillow under your knee when you are relaxing or sleeping. It is just as important to make sure you are getting your knee perfectly straight as it is to regain your knee bend. * You were shown a series of exercises in the hospital. Do these exercises three times each day including the exercises you were shown in physical therapy. * Get up and walk several times each day. For the first four weeks, try not to stand or walk for more than one hour at a time. If you do stand or walk for more than one hour, you will not hurt anything, but your leg will likely swell. * As you feel comfortable, you may change from the walker or crutches to a cane and then to independent walking. Medications: * Narcotic You will likely be sent home from the hospital with a prescription for the narcotic pain medication that worked best throughout your stay. * Cefadroxil -take the antibiotic twice a day for 10 days to help prevent infection. * Aspirin Most patients will be required to take Aspirin 81mg twice a day for 6 weeks after surgery. This is obtained [id number] and a prescription is not necessary. * Other medications may be prescribed for specific circumstances. If you have any questions, please call the office at . * Resume previous home medications unless otherwise instructed TEDs/Elastic Stockings: The white elastic stockings help limit swelling and prevent blood clots from forming in your legs.~ The more you wear them, the more they work. Wear them for six weeks. Dressing Care: The dressing can be changed after physical therapy on postop day #1. Daily dry dressing changes for a few days, especially if the incision is still draining some. If the incision is not draining then you may leave the oseas open to air. If there is a little bit of drainage or if the oseas are getting stuck on your clothing then cover the incision with a dry dressing. The oseas will be removed at your 2 week follow-up appointment. Showering: You may shower 5 days from the day of surgery as long as the incision is no longer draining. You may shower with the oseas exposed. Let soapy water run over the oseas and pat them dry. Do not scrub or soak the incision. Diet: You may resume your previous diet. Things To Watch For: * Drainage from the incision site that occurs more than one week after your surgery. * Increased redness at the incision site. * Fever above 102 degrees Fahrenheit. * Unusual chest pain or shortness of breath. * Call [facility] at with any of the above problems Follow-Up Visit: Follow-up with Dr. Pacheco's PA (Ricki Pavon) 2-3 weeks after your day of surgery. He will remove your oseas and answer any questions. If you have any additional questions or concerns, Dr Pacheco is usually in the office at the same time and will be available An appointment was probably scheduled when you signed-up for surgery in the office. If you have any questions call Office Instructions: More detailed instructions as well as Frequently Asked Questions were provided in a folder by our office when you signed-up for surgery. Please review these instructions when you get home. If you have any further questions or concerns, please feel free to call the office at [phone] Pending Studies at Discharge: No Stand-Alone Forms: My [facility] Medications and DC Order Prescriptions: New oxycodone 5 mg tablet 5 mg PO Q6H PRN (Reason: pain) Qty: 30 0RF aspirin [Adult Aspirin Regimen] 81 mg tablet,delayed release (DR/EC) 81 mg PO BID Qty: 84 0RF cefadroxil 500 mg capsule 500 mg PO BID 10 Days Qty: 20 0RF Continued gabapentin 300 mg capsule 300 mg PO BID Qty: 180 1RF losartan 50 mg tablet 50 mg PO QAM Qty: 90 3RF methocarbamol 500 mg tablet 500 mg PO BID Qty: 60 2RF sildenafil [Viagra] 50 mg tablet 50 mg PO DAILY PRN (Reason: sexual activity) Qty: 10 0RF Rx Instructions: administer 30 minutes to 4 hours before activity acetaminophen 500 mg capsule 500 mg PO Q6H PRN (Reason: Pain) clonazepam [Klonopin] 0.5 mg tablet 0.5 mg PO HS PRN (Reason: sleep/anxiety) Patient Comments: takes rarely ondansetron HCl 8 mg tablet 8 mg PO Q8H PRN (Reason: N/V) prochlorperazine maleate 10 mg tablet 10 mg PO Q6H PRN (Reason: N/V) allopurinol 300 mg tablet 300 mg PO QAM acyclovir 400 mg tablet 400 mg PO BID cyanocobalamin (vitamin B-12) Tablet,Chewable 1 tab PO QAM sertraline [Zoloft] 100 mg tablet 200 mg PO QAM omeprazole magnesium [Prilosec OTC] 20 mg tablet,delayed release (DR/EC) 20 mg PO QAM Discharge Orders: Discharge Order (Routine); Ordered 05/24/24 Ordered By: Ricki Pacheco Admission Data Admit Date/Time: 05/23/24 13:43 Attending Provider: Ricki Pacheco Admit Provider: Ricki Pacheco Primary Care Provider: PCP,MAURILIO
[2024-05-24] MEDS: SERTRALINE HCL 100 MG TABLET PO SCH (07:12)
[2024-05-24] MEDS: MULTIVITAMIN TAB PO SCH (07:13)
[2024-05-24] MEDS: LOSARTAN POTASSIUM 50 MG TAB PO SCH (07:13)
[2024-05-24] MEDS: allopurinoL 300 MG TAB PO SCH (07:13)
[2024-05-24] MEDS: PANTOprazole 40 MG TAB PO SCH (07:13)
[2024-05-24] MEDS: dexAMETHasone 4 MG TAB PO SCH (07:14)
[2024-05-24 07:24] VITALS: BP 139/72; PULSE 74; RESP 16; TEMP 97.5; O2SAT 97
== END 2024-05-24 10:11 | disposition home or self-care (01) ==
LOC: PACUINP 10:27 → ASU 10:27 → 3N 16:41